=== PATIENT | male | born 1980 ===

== ENCOUNTER 2017-10-05 10:36 | Inpatient (IN) | payer OTHER ==
[2017-10-05] MEDS ORDERED: Sodium Chloride 0.9% 1,000 ML IV ONE (11:02)
[2017-10-05] MEDS ORDERED: Sodium Chloride 0.9% 1,000 ML ONE (11:13)
[2017-10-05 11:14] LABS: BASO # 0.1 K/uL (0.0-0.2); BASO % 0.7 % (0.0-2.0); LYMPH # 0.7 K/uL (1.0-4.3); LYMPH % 8.4 % (20.0-40.0); MEAN CELL VOLUME 67.9 fL (80.0-94.0); MEAN CORPUSCULAR HEMOGLOBIN 19.6 pg (27.0-31.0); MEAN CORPUSCULAR HGB CONC 28.9 g/dL (33.0-37.0); MONO # 1.1 K/uL (0.0-0.8); MONO % 13.3 % (0.0-10.0); NEUT # 6.4 K/uL (1.8-7.0); NEUT % 77.6 % (50.0-75.0); PLATELET COUNT 48 K/uL (130-400); RBC 1.69 Mil/uL (4.40-5.90); RED CELL DISTRIBUTION WIDTH 18.2 % (11.5-14.5); WHITE BLOOD COUNT 8.2 K/uL (4.8-10.8)
[2017-10-05 11:18] LABS: HEMOGLOBIN 3.3 g/dL (12.0-18.0)
[2017-10-05 11:22] LABS: INR 1.6; PROTHROMBIN TIME 17.5 SECONDS (9.7-12.2)
--- NOTE | 2017-10-05 11:25 | RAD ---
Date of service: 10/05/2017 PROCEDURE: CHEST RADIOGRAPH, 1 VIEW HISTORY: SOB COMPARISON: None available. FINDINGS: LUNGS: The lungs are well inflated and clear. PLEURA: No pneumothorax or pleural fluid seen. CARDIOVASCULAR: Normal. OSSEOUS STRUCTURES: No significant abnormalities. VISUALIZED UPPER ABDOMEN: Normal. OTHER FINDINGS: None. IMPRESSION: No active pulmonary disease.
[2017-10-05 11:28] LABS: ALBUMIN 3.1 g/dL (3.5-5.0); ALT/SGPT 48 U/L (21-72); AST/SGOT 111 U/L (17-59); BLOOD UREA NITROGEN 25 mg/dL (9-20); CALCIUM 8.4 mg/dl (8.6-10.4); GFR AFRICAN-AMERICAN > 60; GFR NON-AFRICAN AMERICAN > 60
[2017-10-05] MEDS ORDERED: Magnesium Sulfate 1 gm in D5W 1 GM/100 ML BAG IVPB ONE ×2 (11:38→11:54)
[2017-10-05] MEDS ORDERED: Potassium Chloride 20 mEq ER Tab PO STA (11:38)
[2017-10-05 11:39] LABS: B-TYPE NATRIURETIC PEPTIDE 111 pg/mL (0-450)
--- NOTE | 2017-10-05 11:43 | C.PDOC ---
History Of Present Illness 36 y/o male presents to ED with c/o dizziness for 4 days wore last night and today is unable to walk secondary to dizziness. Patient reports vomiting when eating and denies recent travel, chest pain, sob or any other complaints at this time. Time Seen by Provider: 10/05/17 10:43 Chief Complaint (Nursing): GI Problem History Per: Patient History/Exam Limitations: no limitations Onset/Duration Of Symptoms: Days Current Symptoms Are (Timing): Still Present Past Medical History Reviewed: Historical Data, Nursing Documentation, Vital Signs Vital Signs: Last Vital Signs Temp 99.6 F 10/05/17 10:58 Pulse 124 H 10/05/17 10:58 Resp 25 H 10/05/17 10:58 BP 121/48 L 10/05/17 10:58 Pulse Ox 100 10/05/17 11:59 - Medical History PMH: No Chronic Diseases Surgical History: No Surg Hx Family History: States: No Known Family Hx - Social History Hx Alcohol Use: Yes Hx Substance Use: No - Immunization History Hx Tetanus Toxoid Vaccination: No Hx Influenza Vaccination: No Hx Pneumococcal Vaccination: No Review Of Systems Except As Marked, All Systems Reviewed And Found Negative. Gastrointestinal: Positive for: Vomiting Neurological: Positive for: Dizziness Physical Exam - Physical Exam Appears: No Acute Distress, Chronically Ill Skin: Warm, Dry, Jaundice, Ecchymosis (to lower legs bilaterally) Head: Atraumatic, Normacephalic Eye(s): bilateral: PERRL, EOMI, Scleral Icterus Oral Mucosa: Moist Neck: Supple Chest: Ecchymosis (anterior chest wall ) Cardiovascular: Rhythm Regular, Murmur (3/6 systolic injection) Respiratory: Normal Breath Sounds, No Rales, No Rhonchi, No Wheezing Gastrointestinal/Abdominal: Soft, No Tenderness, No Guarding, No Rebound Rectal: Heme Positive (black stool ), No Blood Streaked Stool, No Tenderness Extremity: Normal ROM, No Calf Tenderness, No Deformity, No Swelling Neurological/Psych: Oriented x3, Normal Speech, Normal Cognition, Normal Motor, Normal Sensation, Other (Tremulous) ED Course And Treatment - Laboratory Results Result Diagrams: 10/05/17 11:10 10/05/17 11:10 ECG: Interpreted By Me, Viewed By Me ECG Rhythm: Sinus Tachycardia Rate From EC (BPM) O2 Sat by Pulse Oximetry: 100 (RA) Pulse Ox Interpretation: Normal Critical Care Time - Critical Care Note Total Time (in mins): 60 Documented critical care: time excludes all time spent performing seperately billable procedures. Medical Decision Making Medical Decision Making: Assessment: Dizziness Progress: [id number] results 3.3, d/w Dr. Chan, admit under his service for Severe anemia and instructed for 2 units of blood cells to be transfused Disposition Discussed With Dr.: Bao Díaz Doctor Will See Patient In The: Hospital Counseled Patient/Family Regarding: Studies Performed, Diagnosis - Disposition Disposition: HOSPITALIZED Disposition Time: 11:42 Condition: GUARDED - Clinical Impression Clinical Impression: Anemia, Electrolyte abnormality - Scribe Statement The provider has reviewed the documentation as recorded by the Scribnorris Kate All medical record entries made by the Leanaibnorris were at my direction and personally dictated by me. I have reviewed the chart and agree that the record accurately reflects my personal performance of the history, physical exam, medical decision making, and the department course for this patient. I have also personally directed, reviewed, and agree with the discharge instructions and disposition.
[2017-10-05] MEDS ORDERED: Pantoprazole 80 MG in Sodium Chloride 0.9% 100 ML IVP SCH (11:45)
[2017-10-05] MEDS ORDERED: Potassium Chloride 20 mEq ER Tab PO ONE (11:54)
[2017-10-05 12:16] LABS: BANDS 5 % (0-2); LYMPHOCYTE 7 % (20-40); MONOCYTE 9 % (0-10); NEUTROPHIL 79 % (50-75); TOTAL CELLS COUNTED 100
[2017-10-05 12:17] LABS: ANISOCYTOSIS MODERATE; MICROCYTOSIS MODERATE; PLATELET ESTIMATE DECREASED (NORMAL)
[2017-10-05 12:18] LABS: HYPOCHROMIC MARKED
[2017-10-05] MEDS ORDERED: Phytonadione 10 mg/ml Inj (Adult) IV STA (12:31)
[2017-10-05] MEDS ORDERED: Iodixanol 320 MG/ML 100 ML BOTTLE IV ONE (12:32)
[2017-10-05] MEDS ORDERED: Folic Acid 1 MG, Thiamine 100 MG, Multivitamin (MVI) 10 ML in Dextrose 5% In Water 1,00... IV SCH (12:45)
--- NOTE | 2017-10-05 12:53 | CP.PCM.CON ---
<Rich Vásquez - Last Filed: 10/05/17 16:14> History of Present Illness - History of Present Illness History of Present Illness: Rich Fahad DO PGY-1, ICU consult note for Dr. Chan CC: lightheadedness, dizziness Medical record and chart reviewed prior to evaluation. This is a 36 year old [id number], male without significant PMHx who was BIBA with complaints of feeling weak and dizzy over the past month , worsening over the past 4 days. Pt is a poor historian, but states that he has vomiting and diarrhea for the past week; described as black tarry stools and vomiting containing dark blood. Pt reports his last episode of vomiting was this morning; dark brown. He reports that his last episode of diarrhea was last night; dark and tarry. Pt reports that his has noticed yellowing of his eyes 1 week ago. ICU was consulted due to Hgb in the ED noted to be 3.3. Pt was seen and examined at bedside. Pt does not appear in acute distress. Endorses only weakness, lightheadedness and palpitations. Pt denies fevers, chills, headache, chest pain, sob, abdominal pain, recent travel. PMH: none PSHx: none FamilyHx: none Meds: none Allx: NKDA Social history: Drinks two 12-packs over the weekend. Denies drinking during the weekdays. Denies illicit drug use or smoking. Pt was born in [facility] and emig[place] the [facility] 16 years ago. 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 Review of Systems - Review of Systems All systems: reviewed and no additional remarkable complaints except (see HPI) Past Patient History - Past Social History Smoking Status: Never Smoked - PSYCHIATRIC Hx Substance Use: No - SURGICAL HISTORY Hx Surgeries: No - ANESTHESIA Hx Anesthesia: No Meds Allergies/Adverse Reactions: Allergies Allergy/AdvReac Type Severity Reaction Status Date / Time No Known Allergies Allergy Verified 10/05/17 10:46 - Medications Medications: Current Medications Sodium Chloride (Sodium Chloride 0.9%) 1,000 mls @ 250 mls/hr IV .Q4H ONE Stop: 10/05/17 15:01 Last Admin: 10/05/17 11:15 Dose: 250 mls/hr Pantoprazole Sodium 80 mg/ (Sodium Chloride) 100 mls @ 10 mls/hr IVP .Q10H [place]ICHOLE PRN Reason: 8 MG/HR Last Admin: 10/05/17 12:20 Dose: 10 mls/hr Magnesium Sulfate/Dextrose (Magnesium Sulfate 1 Gm/100 Ml D5w) 1 gm in 100 mls @ 300 mls/hr IVPB Q30M [facility] Stop: 10/05/17 13:34 Folic Acid 1 mg/ Thiamine HCl 100 mg/ Multivitamins/Vitamin C 10 ml/ Dextrose 1 ,011.2 mls @ 75 mls/hr IV .[id number] [facility] Lorazepam (Ativan) 1 mg IVP Q6H PRN PRN Reason: Anxiety Pantoprazole Sodium (Protonix Inj) 40 mg IVP Q12H [facility] Physical Exam - Constitutional Appears: No Acute Distress - Head Exam Head Exam: ATRAUMATIC, NORMAL INSPECTION - Eye Exam Eye Exam: PERRL, Scleral icterus - ENT Exam ENT Exam: Mucous Membranes Moist - Neck Exam Neck exam: Positive for: Normal Inspection - Respiratory Exam Respiratory Exam: Clear to Auscultation Bilateral, NORMAL BREATHING PATTERN. absent: Wheezes - Cardiovascular Exam Cardiovascular Exam: Tachycardia, Systolic Murmur Additional comments: blowing systolic murmur, most prominent at pulmonic valve - GI/Abdominal Exam GI & Abdominal Exam: Normal Bowel Sounds, Soft. absent: Tenderness - Extremities Exam Extremities exam: Positive for: pedal edema ((+) 1+ pitting edema bilateral lower extremities to just below the knee). Negative for: tenderness Additional comments: (+) both hands are tremulous - Neurological Exam Neurological exam: Oriented x3 - Psychiatric Exam Psychiatric exam: Normal Affect - Skin Skin Exam: Dry, Warm Additional comments: (+) jaundice (+) multiple areas of scattered nontender ecchymosis, all approximately 4cm x 2cm in size: left and right mid chest, left abdomen, left medial thigh Results - Vital Signs Recent Vital Signs: Last Vital Signs Temp 99.6 F 10/05/17 10:58 Pulse 109 H 10/05/17 12:02 Resp 18 10/05/17 12:02 BP 123/55 L 10/05/17 12:02 Pulse Ox 100 10/05/17 12:02 - Labs Result Diagrams: 10/05/17 11:10 10/05/17 11:10 Labs: Laboratory Results - last 24 hr 10/05/17 10/05/17 10/05/17 10:49 11:10 11:10 WBC 8.2 RBC 1.69 L Hgb 3.3 L* Hct 11.5 L MCV 67.9 L MCH 19.6 L MCHC 28.9 L RDW 18.2 H Plt Count 48 L MPV 9.0 Neut % (Auto) 77.6 H Lymph % (Auto) 8.4 L Letcher % (Auto) 13.3 H Eos % (Auto) 0.0 Baso % (Auto) 0.7 Neut # (Auto) 6.4 Lymph # (Auto) 0.7 L Letcher # (Auto) 1.1 H Eos # (Auto) 0.0 Baso # (Auto) 0.1 Neutrophils % (Manual) 79 H Band Neutrophils % 5 H Lymphocytes % (Manual) 7 L Monocytes % (Manual) 9 Platelet Estimate Decreased L Hypochromasia (manual) Marked Basophilic Stippling Slight Anisocytosis (manual) Moderate Microcytosis (manual) Moderate PT 17.5 H INR 1.6 APTT 32 Sodium Potassium Chloride Carbon Dioxide Anion Gap BUN Creatinine Est GFR ( Amer) Est GFR (Non-Af Amer) POC Glucose (mg/dL) 133 H Random Glucose Calcium Phosphorus Magnesium Total Bilirubin AST ALT Alkaline Phosphatase Ammonia Troponin I NT-Pro-B Natriuret Pep Total Protein Albumin Globulin Albumin/Globulin Ratio TSH 3rd Generation Alcohol, Quantitative Blood Type Antibody Screen 10/05/17 10/05/17 10/05/17 11:10 11:10 11:41 WBC RBC Hgb Hct MCV MCH MCHC RDW Plt Count MPV Neut % (Auto) Lymph % (Auto) Letcher % (Auto) Eos % (Auto) Baso % (Auto) Neut # (Auto) Lymph # (Auto) Letcher # (Auto) Eos # (Auto) Baso # (Auto) Neutrophils % (Manual) Band Neutrophils % Lymphocytes % (Manual) Monocytes % (Manual) Platelet Estimate Hypochromasia (manual) Basophilic Stippling Anisocytosis (manual) Microcytosis (manual) PT INR APTT Sodium 139 Potassium 3.3 L Chloride 103 Carbon Dioxide 16 L Anion Gap 24 H BUN 25 H Creatinine 0.8 Est GFR ( Amer) > 60 Est GFR (Non-Af Amer) > 60 POC Glucose (mg/dL) Random Glucose 120 H Calcium 8.4 L Phosphorus 3.7 Magnesium 1.5 L Total Bilirubin 4.0 H AST 111 H ALT 48 Alkaline Phosphatase 101 Ammonia 55 H Troponin I 0.0340 NT-Pro-B Natriuret Pep 111 Total Protein 6.3 Albumin 3.1 L Globulin 3.2 Albumin/Globulin Ratio 1.0 TSH 3rd Generation 2.02 Alcohol, Quantitative < 10 Blood Type O POSITIVE Antibody Screen Negative Assessment & Plan - Assessment and Plan (Free Text) Assessment: This is a 36 year old male without significant PMhx who presented to the ED via ambulance with complaints of weakness and dizziness for the past month, worsening over the past 5 days. He endorses a history of dark tarry stools and vomiting containing dark blood. In the ED, pt was noted to be severely anemic ( hgb 3.3) with thrombocytopenia (48). ICU was consulted due to severe anemia with thrombocytopenia. Neuro: - monitor for mental status changes - Pt is AAOx3 at baseline - head ct is unremarkable - serum alcohol<10 - ammonia elevated at 55 - lactulose PO - ativan prn agitation Cardio: - tachycardia without hypotension - maintain MAP>65mmHg - EKG shows ST at 118 - troponin negative x1 - echocardiogram Pulm: - pt is satting well on RA - maintain spo2>95% - NC prn - CXR shows no active pulmonary disease GI: - NPO for possible endoscopy tomorrow - abdominal/pelvic CT with IV contrast shows hepatic cirrhosis. Retroperitoneal varices in the left upper abdomen. No definite esophageal varices. No ascites. Diffuse nonspecific thickening of the gallbladder wall, possibly related to hypoalbuminemia associated with cirrhosis. Patent portal vein. - GI consulted, recs appreciated - octeotride 50 mcg bolus followed by octeotride 50 mcg/hr gtt as per GI - protonix gtt for pud ppx - zofran prn nausea - tbili elevated at 4.0 - transaminitis consistent with alcoholic hepatitis Heme: - microcytic anemia with thrombocytopenia; Hgb 3.3, PLT 48 - will transfuse 4 units of pRBCs through pressure bag - vitamin k - f/u haptoglobin, peripheral smear, reticulocyte count, tibc, iron - heparin for vte ppx contraindicated due to risk of bleeding - f/u cbc, PT/PTT/INR Renal: - BUN/cr is wnl - hypokalemia and hypomagnesemia; repleted - banana bag Endo: - maintain euglycemia - accucheck ACHS PPX: protonix gtt for pud; scds for vte ppx Dispo: admit to ICU, possible EGD tomorrow Case was reviewed and discussed with attending physician, Dr. Chan <Jalil Chan - Last Filed: 10/05/17 16:43> Meds - Medications Medications: Current Medications Pantoprazole Sodium 80 mg/ (Sodium Chloride) 100 mls @ 10 mls/hr IV .Q10H [place]LE PRN Reason: 8 MG/HR Octreotide Acetate 1,250 mcg/ (Sodium Chloride) 252.5 mls @ 10.1 mls/hr IV .Q24H NICHOLE; 50 MCG/HR PRN Reason: Protocol Last Admin: 10/05/17 14:53 Dose: 10.1 mls/hr Folic Acid 1 mg/ Thiamine HCl 100 mg/ Multivitamins/Vitamin C 10 ml/ Dextrose 1 ,011.2 mls @ 75 mls/hr IV Q24H [facility] Last Admin: 10/05/17 14:59 Dose: 75 mls/hr Lorazepam (Ativan) 1 mg IVP Q6H PRN PRN Reason: Anxiety Pneumococcal Polyvalent Vaccine (Pneumovax 23 Vaccine) 0.5 ml IM .ONCE ONE Stop: 10/08/17 10:01 Results - Vital Signs Recent Vital Signs: Last Vital Signs Temp 98.9 F 10/05/17 15:07 Pulse 100 H 10/05/17 15:04 Resp 20 10/05/17 15:04 BP 124/64 10/05/17 15:04 Pulse Ox 99 10/05/17 15:01 - Labs Result Diagrams: 10/05/17 11:10 10/05/17 11:10 Labs: Laboratory Results - last 24 hr 10/05/17 10/05/17 10/05/17 10:49 11:10 11:10 WBC 8.2 RBC 1.69 L Hgb 3.3 L* Hct 11.5 L MCV 67.9 L MCH 19.6 L MCHC 28.9 L RDW 18.2 H Plt Count 48 L MPV 9.0 Neut % (Auto) 77.6 H Lymph % (Auto) 8.4 L Letcher % (Auto) 13.3 H Eos % (Auto) 0.0 Baso % (Auto) 0.7 Neut # (Auto) 6.4 Lymph # (Auto) 0.7 L Letcher # (Auto) 1.1 H Eos # (Auto) 0.0 Baso # (Auto) 0.1 Neutrophils % (Manual) 79 H Band Neutrophils % 5 H Lymphocytes % (Manual) 7 L Monocytes % (Manual) 9 Platelet Estimate Decreased L Hypochromasia (manual) Marked Basophilic Stippling Slight Anisocytosis (manual) Moderate Microcytosis (manual) Moderate Smear Path Review Retic Count Cancelled Haptoglobin PT 17.5 H INR 1.6 APTT 32 Sodium Potassium Chloride Carbon Dioxide Anion Gap BUN Creatinine Est GFR ( Amer) Est GFR (Non-Af Amer) POC Glucose (mg/dL) 133 H Random Glucose Calcium Phosphorus Magnesium Iron TIBC % Saturation Total Bilirubin AST ALT Alkaline Phosphatase Ammonia Troponin I NT-Pro-B Natriuret Pep Total Protein Albumin Globulin Albumin/Globulin Ratio TSH 3rd Generation Alcohol, Quantitative Blood Type Antibody Screen 10/05/17 10/05/17 10/05/17 11:10 11:10 11:41 WBC RBC Hgb Hct MCV MCH MCHC RDW Plt Count MPV Neut % (Auto) Lymph % (Auto) Letcher % (Auto) Eos % (Auto) Baso % (Auto) Neut # (Auto) Lymph # (Auto) Letcher # (Auto) Eos # (Auto) Baso # (Auto) Neutrophils % (Manual) Band Neutrophils % Lymphocytes % (Manual) Monocytes % (Manual) Platelet Estimate Hypochromasia (manual) Basophilic Stippling Anisocytosis (manual) Microcytosis (manual) Smear Path Review Retic Count Haptoglobin PT INR APTT Sodium 139 Potassium 3.3 L Chloride 103 Carbon Dioxide 16 L Anion Gap 24 H BUN 25 H Creatinine 0.8 Est GFR ( Amer) > 60 Est GFR (Non-Af Amer) > 60 POC Glucose (mg/dL) Random Glucose 120 H Calcium 8.4 L Phosphorus 3.7 Magnesium 1.5 L Iron TIBC % Saturation Total Bilirubin 4.0 H AST 111 H ALT 48 Alkaline Phosphatase 101 Ammonia 55 H Troponin I 0.0340 NT-Pro-B Natriuret Pep 111 Total Protein 6.3 Albumin 3.1 L Globulin 3.2 Albumin/Globulin Ratio 1.0 TSH 3rd Generation 2.02 Alcohol, Quantitative < 10 Blood Type O POSITIVE Antibody Screen Negative 10/05/17 10/05/17 10/05/17 13:53 13:53 14:48 WBC RBC Hgb Hct MCV MCH MCHC RDW Plt Count MPV Neut % (Auto) Lymph % (Auto) Letcher % (Auto) Eos % (Auto) Baso % (Auto) Neut # (Auto) Lymph # (Auto) Letcher # (Auto) Eos # (Auto) Baso # (Auto) Neutrophils % (Manual) Band Neutrophils % Lymphocytes % (Manual) Monocytes % (Manual) Platelet Estimate Hypochromasia (manual) Basophilic Stippling Anisocytosis (manual) Microcytosis (manual) Smear Path Review Retic Count 5.6 H Haptoglobin 50.1 PT INR APTT Sodium Potassium Chloride Carbon Dioxide Anion Gap BUN Creatinine Est GFR ( Amer) Est GFR (Non-Af Amer) POC Glucose (mg/dL) Random Glucose Calcium Phosphorus Magnesium Iron 11 L TIBC 373 % Saturation 3 L Total Bilirubin AST ALT Alkaline Phosphatase Ammonia Troponin I NT-Pro-B Natriuret Pep Total Protein Albumin Globulin Albumin/Globulin Ratio TSH 3rd Generation Alcohol, Quantitative Blood Type Antibody Screen 10/05/17 14:48 WBC RBC Hgb Hct MCV MCH MCHC RDW Plt Count MPV Neut % (Auto) Lymph % (Auto) Letcher % (Auto) Eos % (Auto) Baso % (Auto) Neut # (Auto) Lymph # (Auto) Letcher # (Auto) Eos # (Auto) Baso # (Auto) Neutrophils % (Manual) Band Neutrophils % Lymphocytes % (Manual) Monocytes % (Manual) Platelet Estimate Hypochromasia (manual) Basophilic Stippling Anisocytosis (manual) Microcytosis (manual) Smear Path Review Retic Count Haptoglobin PT INR APTT Sodium Potassium Chloride Carbon Dioxide Anion Gap BUN Creatinine Est GFR ( Amer) Est GFR (Non-Af Amer) POC Glucose (mg/dL) Random Glucose Calcium Phosphorus Magnesium Iron TIBC % Saturation 3 L Total Bilirubin AST ALT Alkaline Phosphatase Ammonia Troponin I NT-Pro-B Natriuret Pep Total Protein Albumin Globulin Albumin/Globulin Ratio TSH 3rd Generation Alcohol, Quantitative Blood Type Antibody Screen Attending/Attestation - Attestation I have personally seen and examined this patient.: Yes I have fully participated in the care of the patient.: Yes I have reviewed all pertinent clinical information: Yes Notes (Text): 10/05/17 16:41 patient seen and examined 36-year-old male with history of alcohol abuse admitted with weakness and lethargy ICU consult for significant anemia and jaundice Transfuse packed RBCs Octreotide and Protonix drip GI consult Lactulose Ativan when necessary Magnesium and potassium Thiamine and folic acid
--- NOTE | 2017-10-05 12:59 | CT ---
Date of service: 10/05/2017 PROCEDURE: CT HEAD WITHOUT CONTRAST. HISTORY: dizziness COMPARISON: None available. TECHNIQUE: Axial computed tomography images were obtained through the head/brain without intravenous contrast. Radiation dose: Total exam DLP = 803.50 mGy-cm. This CT exam was performed using one or more of the following dose reduction techniques: Automated exposure control, adjustment of the mA and/or kV according to patient size, and/or use of iterative reconstruction technique. FINDINGS: HEMORRHAGE: No intracranial hemorrhage. BRAIN: Normal moon-white matter differentiation and density are appreciated throughout the cerebrum and cerebellum with the brainstem appearing unremarkable as well. There is no mass effect. There is no suspicious extra-axial fluid collection and the midline brain anatomy appears diffusely unremarkable. VENTRICLES: Unremarkable. No hydrocephalus. CALVARIUM: Unremarkable. PARANASAL SINUSES: Unremarkable as visualized. No significant inflammatory changes. MASTOID AIR CELLS: Unremarkable as visualized. No inflammatory changes. OTHER FINDINGS: None. IMPRESSION: Unremarkable noncontrast head CT.
--- NOTE | 2017-10-05 13:02 | CP.PCM.HP ---
<Tariq Greene - Last Filed: 10/05/17 14:57> History of Present Illness - History of Present Illness History of Present Illness: Medicine note for hospitalist service cc: I feel weak Pt is a 36yo male with a PMH of HTN presents to the ED with 5 day history of dizziness and weakness. Pt states this began 5 days ago when he began to get blurry vision. Pt reported first symptoms were noticed when waking up on tuesday feeling dizzy upon standing. Pt reports the orthostatic change worsening since tuesday. Pt reports not being able to walk to the store without getting losing his breath and getting light-headed. He began to feel dizzy and weak today at rest. Pt experienced 2 episodes of non-bloody, brown colored vomiting this morning. Pt reports blood-tinged stools this week. 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 Allergies: denies Present on Admission - Present on Admission Any Indicators Present on Admission: No Review of Systems - Review of Systems Systems not reviewed;Unavailable: Unstable Vital Signs - Constitutional Constitutional: As Per HPI - EENT Eyes: As Per HPI Ears: As Per HPI Nose/Mouth/Throat: As Per HPI - Cardiovascular Cardiovascular: As Per HPI - Respiratory Respiratory: As Per HPI - Gastrointestinal Gastrointestinal: As Per HPI - Genitourinary Genitourinary: As Per HPI - Reproductive: Male Reproductive:Male: As Per HPI - Musculoskeletal Musculoskeletal: As Per HPI - Integumentary Integumentary: As Per HPI - Neurological Neurological: As Per HPI - Psychiatric Psychiatric: As Per HPI - Endocrine Endocrine: As Per HPI - Hematologic/Lymphatic Hematologic: As Per HPI Past Patient History - Past Social History Smoking Status: Never Smoked Alcohol: Other (10+ beers on weekends) Drugs: Denies Home Situation {Lives}: With Family - CARDIAC Hx Hypertension: Yes - PSYCHIATRIC Hx Substance Use: No - SURGICAL HISTORY Hx Surgeries: No - ANESTHESIA Hx Anesthesia: No Meds Allergies/Adverse Reactions: Allergies Allergy/AdvReac Type Severity Reaction Status Date / Time No Known Allergies Allergy Verified 10/05/17 10:46 Physical Exam - Constitutional Appears: In Acute Distress - Head Exam Head Exam: ATRAUMATIC, NORMAL INSPECTION - Eye Exam Eye Exam: Scleral icterus Additional comments: pale conjunctiva - ENT Exam ENT Exam: Mucous Membranes Moist - Neck Exam Neck exam: Positive for: Normal Inspection - Respiratory Exam Respiratory Exam: Clear to Auscultation Bilateral, NORMAL BREATHING PATTERN. absent: Wheezes - Cardiovascular Exam Cardiovascular Exam: Tachycardia, +S1, +S2. absent: Diastolic murmur, Systolic Murmur - GI/Abdominal Exam GI & Abdominal Exam: Soft. absent: Guarding, Rebound, Tenderness - Rectal Exam Rectal Exam: Black Stool Additional comments: no blood streaks - Extremities Exam Extremities exam: Positive for: pedal pulses present. Negative for: joint swelling, pedal edema, tenderness - Back Exam Back exam: NORMAL INSPECTION - Neurological Exam Neurological exam: Alert, CN II-XII Intact, Oriented x3 - Psychiatric Exam Psychiatric exam: Anxious - Skin Skin Exam: Pallor Additional comments: Jaundice, pale palms Results - Vital Signs Recent Vital Signs: Last Vital Signs Temp 99.6 F 10/05/17 10:58 Pulse 109 H 10/05/17 12:02 Resp 18 10/05/17 12:02 BP 123/55 L 10/05/17 12:02 Pulse Ox 100 10/05/17 12:02 - Labs Result Diagrams: 10/05/17 11:10 10/05/17 11:10 Labs: Laboratory Results - last 24 hr 10/05/17 10/05/17 10/05/17 10:49 11:10 11:10 WBC 8.2 RBC 1.69 L Hgb 3.3 L* Hct 11.5 L MCV 67.9 L MCH 19.6 L MCHC 28.9 L RDW 18.2 H Plt Count 48 L MPV 9.0 Neut % (Auto) 77.6 H Lymph % (Auto) 8.4 L [place] % (Auto) 13.3 H Eos % (Auto) 0.0 Baso % (Auto) 0.7 Neut # (Auto) 6.4 Lymph # (Auto) 0.7 L [place] # (Auto) 1.1 H Eos # (Auto) 0.0 Baso # (Auto) 0.1 Neutrophils % (Manual) 79 H Band Neutrophils % 5 H Lymphocytes % (Manual) 7 L Monocytes % (Manual) 9 Platelet Estimate Decreased L Hypochromasia (manual) Marked Basophilic Stippling Slight Anisocytosis (manual) Moderate Microcytosis (manual) Moderate PT 17.5 H INR 1.6 APTT 32 Sodium Potassium Chloride Carbon Dioxide Anion Gap BUN Creatinine Est GFR ( Amer) Est GFR (Non-Af Amer) POC Glucose (mg/dL) 133 H Random Glucose Calcium Phosphorus Magnesium Total Bilirubin AST ALT Alkaline Phosphatase Ammonia Troponin I NT-Pro-B Natriuret Pep Total Protein Albumin Globulin Albumin/Globulin Ratio TSH 3rd Generation Alcohol, Quantitative Blood Type Antibody Screen 10/05/17 10/05/17 10/05/17 11:10 11:10 11:41 WBC RBC Hgb Hct MCV MCH MCHC RDW Plt Count MPV Neut % (Auto) Lymph % (Auto) [place] % (Auto) Eos % (Auto) Baso % (Auto) Neut # (Auto) Lymph # (Auto) [place] # (Auto) Eos # (Auto) Baso # (Auto) Neutrophils % (Manual) Band Neutrophils % Lymphocytes % (Manual) Monocytes % (Manual) Platelet Estimate Hypochromasia (manual) Basophilic Stippling Anisocytosis (manual) Microcytosis (manual) PT INR APTT Sodium 139 Potassium 3.3 L Chloride 103 Carbon Dioxide 16 L Anion Gap 24 H BUN 25 H Creatinine 0.8 Est GFR ( Amer) > 60 Est GFR (Non-Af Amer) > 60 POC Glucose (mg/dL) Random Glucose 120 H Calcium 8.4 L Phosphorus 3.7 Magnesium 1.5 L Total Bilirubin 4.0 H AST 111 H ALT 48 Alkaline Phosphatase 101 Ammonia 55 H Troponin I 0.0340 NT-Pro-B Natriuret Pep 111 Total Protein 6.3 Albumin 3.1 L Globulin 3.2 Albumin/Globulin Ratio 1.0 TSH 3rd Generation 2.02 Alcohol, Quantitative < 10 Blood Type O POSITIVE Antibody Screen Negative Assessment & Plan - Assessment and Plan (Free Text) Assessment: 36yo male admitted to the ICU for severe anemia likely secondary to GI bleed. Plan: Anemia secondary to GI Bleed -Admit to ICU -Protonix drip 8mg/hr -Type cross 2 units PRBCs over 3 hrs each -Trasnfusing first unit of PRBCs starting at 2pm -Tylenol 650mg and Benadrul 25mg PO given with first transfusion, next dose at 17:30 prior to 2nd transfusion -CBC with repeat at 12am -GI consulted: Cale Alcohol abuse: -Monitor for withdrawl -Ativan 2mg IV q4 PRN for withdrawl symptoms -Banana bag 1 daily, switch to PO supplementation when oral meds are recommended Liver Cirhosis: -Likely secondary to Alcohol abuse -GI consulted: daron barbour f/u -f/u HIV 1,2 panel -f/u Hepatits panel Hypokalemia/Hypomagnesemia: -Mg sulfate 2gs -KCl IV 20 meq -f/u am labs Metabolic Acidosis: -Likely secondary to GI bleed -IVF NS 100ml/hr -2 units of PRBCs 2pm, 6pm Low Measured Calcium: -corrected for albumin 9.36 -monitor Elevated LFTs: -secondary to hepatic cirhosis, Likely from Etoh abuse -CT abd pelv 10/05/17: Hepatic cirhosis. retroperitoneal varices in left upper abdomen. no esophageal varices, no ascites, gallbladder wall thickening, no portal HTN -f/u hep and HIV panels Ammonia Elevated: -Likely secondary to hepatic cirrhosis, likely from ETOh abuse -20 gm Lactulos PO -Head and Neck CT 10/05: neg -monitor Low Albumin -Likely secondary to cirhosis -monitor -supplement if needed Tachycardia: - likely secondary to anemia -Transfuse PRBS 2 units, 2pm, 6pm -IVF NS 100ml/hr PPX -no anticoag indicated: GI bleed -Protonoix 8mg q4 -NPO -Bilateral SCDs <Bao Díaz - Last Filed: 10/06/17 19:54> Results - Vital Signs Recent Vital Signs: Last Vital Signs Temp 98.5 F 10/06/17 16:00 Pulse 79 10/06/17 19:00 Resp 20 10/06/17 19:00 BP 127/69 10/06/17 19:00 Pulse Ox 97 10/06/17 19:00 - Labs Result Diagrams: 10/06/17 12:00 10/06/17 06:21 Labs: Laboratory Results - last 24 hr 10/05/17 10/05/17 10/05/17 11:41 21:24 21:24 WBC RBC Hgb Hct MCV MCH MCHC RDW Plt Count MPV Neut % (Auto) Lymph % (Auto) [place] % (Auto) Eos % (Auto) Baso % (Auto) Neut # (Auto) Lymph # (Auto) [place] # (Auto) Eos # (Auto) Baso # (Auto) Haptoglobin PT INR APTT Sodium Potassium Chloride Carbon Dioxide Anion Gap BUN Creatinine Est GFR ( Amer) Est GFR (Non-Af Amer) Random Glucose Calcium Phosphorus Magnesium Total Bilirubin AST ALT Alkaline Phosphatase Ammonia Total Protein Albumin Globulin Albumin/Globulin Ratio Thyroxine (T4) TSH 3rd Generation Urine Color Yellow Urine Clarity Clear Urine pH 6.0 Ur Specific [place] 1.038 H Urine Protein Negative Urine Glucose (UA) Normal Urine Ketones Negative Urine Blood Negative Urine Nitrate Negative Urine Bilirubin Negative Urine Urobilinogen 4.0 Ur Leukocyte Esterase Neg Urine WBC (Auto) 1 Urine RBC (Auto) 1 Ur Squamous Epith Cells < 1 Urine Opiates Screen Negative Urine Methadone Screen Negative Ur Barbiturates Screen Negative Ur Phencyclidine Scrn Negative Ur Amphetamines Screen Negative U Benzodiazepines Scrn Negative U Oth Cocaine Metabols Negative U Cannabinoids Screen Negative Blood Type O POSITIVE Antibody Screen Negative 10/05/17 10/06/17 10/06/17 21:24 06:21 06:21 WBC 6.6 5.7 RBC 2.72 L 3.17 L Hgb 6.6 L 8.0 L Hct 20.5 L 24.2 L MCV 75.2 L 76.3 L MCH 24.4 L 25.1 L MCHC 32.4 L 32.9 L RDW 21.7 H 20.8 H Plt Count 46 L 50 L MPV 8.5 8.9 Neut % (Auto) 77.9 H 76.2 H Lymph % (Auto) 10.4 L 12.3 L [place] % (Auto) 11.1 H 10.5 H Eos % (Auto) 0.0 0.0 Baso % (Auto) 0.6 1.0 Neut # (Auto) 5.1 4.3 Lymph # (Auto) 0.7 L 0.7 L [place] # (Auto) 0.7 0.6 Eos # (Auto) 0.0 0.0 Baso # (Auto) 0.0 0.1 Haptoglobin PT INR APTT Sodium 139 Potassium 3.4 L Chloride 106 Carbon Dioxide 24 Anion Gap 12 BUN 20 Creatinine 0.7 L Est GFR ( Amer) > 60 Est GFR (Non-Af Amer) > 60 Random Glucose 114 H Calcium 7.6 L Phosphorus 2.5 Magnesium 2.1 Total Bilirubin 4.7 H AST 128 H ALT 48 Alkaline Phosphatase 84 Ammonia Total Protein 5.9 L Albumin 2.8 L Globulin 3.2 Albumin/Globulin Ratio 0.9 L Thyroxine (T4) 7.03 TSH 3rd Generation 0.25 L Urine Color Urine Clarity Urine pH Ur Specific [place] Urine Protein Urine Glucose (UA) Urine Ketones Urine Blood Urine Nitrate Urine Bilirubin Urine Urobilinogen Ur Leukocyte Esterase Urine WBC (Auto) Urine RBC (Auto) Ur Squamous Epith Cells Urine Opiates Screen Urine Methadone Screen Ur Barbiturates Screen Ur Phencyclidine Scrn Ur Amphetamines Screen U Benzodiazepines Scrn U Oth Cocaine Metabols U Cannabinoids Screen Blood Type Antibody Screen 10/06/17 10/06/17 10/06/17 06:21 06:21 12:00 WBC RBC Hgb Hct MCV MCH MCHC RDW Plt Count MPV Neut % (Auto) Lymph % (Auto) [place] % (Auto) Eos % (Auto) Baso % (Auto) Neut # (Auto) Lymph # (Auto) [place] # (Auto) Eos # (Auto) Baso # (Auto) Haptoglobin 47.4 PT 15.1 H INR 1.4 APTT 30 Sodium Potassium Chloride Carbon Dioxide Anion Gap BUN Creatinine Est GFR ( Amer) Est GFR (Non-Af Amer) Random Glucose Calcium Phosphorus Magnesium Total Bilirubin AST ALT Alkaline Phosphatase Ammonia 74 H D Total Protein Albumin Globulin Albumin/Globulin Ratio Thyroxine (T4) TSH 3rd Generation Urine Color Urine Clarity Urine pH Ur Specific [place] Urine Protein Urine Glucose (UA) Urine Ketones Urine Blood Urine Nitrate Urine Bilirubin Urine Urobilinogen Ur Leukocyte Esterase Urine WBC (Auto) Urine RBC (Auto) Ur Squamous Epith Cells Urine Opiates Screen Urine Methadone Screen Ur Barbiturates Screen Ur Phencyclidine Scrn Ur Amphetamines Screen U Benzodiazepines Scrn U Oth Cocaine Metabols U Cannabinoids Screen Blood Type Antibody Screen 10/06/17 10/06/17 12:00 13:44 WBC 4.7 L RBC 3.12 L Hgb 7.9 L Hct 23.8 L MCV 76.2 L MCH 25.2 L MCHC 33.0 RDW 20.5 H Plt Count 54 L MPV 9.1 Neut % (Auto) 73.8 Lymph % (Auto) 12.3 L [place] % (Auto) 11.7 H Eos % (Auto) 0.7 Baso % (Auto) 1.5 Neut # (Auto) 3.5 Lymph # (Auto) 0.6 L [place] # (Auto) 0.5 Eos # (Auto) 0.0 Baso # (Auto) 0.1 Haptoglobin PT 15.6 H INR 1.4 APTT Sodium Potassium Chloride Carbon Dioxide Anion Gap BUN Creatinine Est GFR ( Amer) Est GFR (Non-Af Amer) Random Glucose Calcium Phosphorus Magnesium Total Bilirubin AST ALT Alkaline Phosphatase Ammonia Total Protein Albumin Globulin Albumin/Globulin Ratio Thyroxine (T4) TSH 3rd Generation Urine Color Urine Clarity Urine pH Ur Specific [place] Urine Protein Urine Glucose (UA) Urine Ketones Urine Blood Urine Nitrate Urine Bilirubin Urine Urobilinogen Ur Leukocyte Esterase Urine WBC (Auto) Urine RBC (Auto) Ur Squamous Epith Cells Urine Opiates Screen Urine Methadone Screen Ur Barbiturates Screen Ur Phencyclidine Scrn Ur Amphetamines Screen U Benzodiazepines Scrn U Oth Cocaine Metabols U Cannabinoids Screen Blood Type Antibody Screen Attending/Attestation - Attestation I have personally seen and examined this patient.: Yes I have fully participated in the care of the patient.: Yes I have reviewed all pertinent clinical information: Yes Notes (Text): 10/06/17 19:52 This is a late entry History, Physical, Assessment and Plan, and orders were gone over in detail with the resident once the patient reached the ICU Bao Díaz D.O.
--- NOTE | 2017-10-05 13:08 | CT ---
Date of service: 10/05/2017 PROCEDURE: CT Abdomen and Pelvis with contrast HISTORY: vomiting and abd. pain COMPARISON: None. TECHNIQUE: Contrast dose: 100 mL Visipaque 320 Radiation dose: Total exam DLP = 547.64 mGy-cm. This CT exam was performed using one or more of the following dose reduction techniques: Automated exposure control, adjustment of the mA and/or kV according to patient size, and/or use of iterative reconstruction technique. FINDINGS: LOWER THORAX: Unremarkable. LIVER: Nodular contour. Consistent with hepatic cirrhosis. No mass. No biliary ductal dilatation. GALLBLADDER AND BILE DUCTS: Diffuse mural thickening, nonspecific. No calcified gallstones. No pericholecystic fluid. PANCREAS: Unremarkable. No gross lesion or ductal dilatation. SPLEEN: Mild splenomegaly. The spleen measures 15 cm in greatest dimension. ADRENALS: Unremarkable. No mass. KIDNEYS AND URETERS: Unremarkable. No hydronephrosis. No solid mass. VASCULATURE: No evidence of abdominal aortic aneurysm. Varices are noted in the left upper abdomen, likely splenorenal. There is recanalization of the umbilical vein. No definite esophageal varices are identified. Portal vein and splenic vein are patent and enhance normally. BOWEL: Diffuse mural thickening of the colon consistent with nonspecific park colitis. No evidence of small-bowel obstruction. No other abnormal bowel loops are identified. Note is made of plaque-like calcification along the posterior wall of the distal esophagus, of uncertain significance. APPENDIX: Not identified. No secondary findings to suggest acute appendicitis. PERITONEUM: Unremarkable. No free fluid. No free air. LYMPH NODES: Unremarkable. No enlarged lymph nodes. BLADDER: Unremarkable. REPRODUCTIVE: Unremarkable prostate BONES: No acute fracture. OTHER FINDINGS: None. IMPRESSION: Hepatic cirrhosis. Retroperitoneal varices in the left upper abdomen. No definite esophageal varices. No ascites. Diffuse nonspecific thickening of the gallbladder wall, possibly related to hypoalbuminemia associated with cirrhosis. Patent portal vein.
[2017-10-05] MEDS: Magnesium Sulfate 1 gm in D5W 1 GM/100 ML BAG IVPB SCH ×2 (13:31→14:05)
[2017-10-05] MEDS ORDERED: Magnesium Sulfate 1 gm in D5W 1 GM/100 ML BAG IVPB SCH (14:00)
[2017-10-05] MEDS: Folic Acid 1 MG, Thiamine 100 MG, Multivitamin (MVI) 10 ML in Dextrose 5% In Water 1,00... IV SCH (14:59)
[2017-10-05 16:09] LABS: % IRON SATURATION 3 (20-55); IRON 11 ug/dL (49-181); TOTAL IRON BINDING CAPACITY 373 ug/dL (250-450)
[2017-10-05 16:56] LABS: BASO % 0.5 % (0.0-2.0); LYMPH # 0.9 K/uL (1.0-4.3); LYMPH % 13.3 % (20.0-40.0); MEAN CORPUSCULAR HEMOGLOBIN 23.6 pg (27.0-31.0); MEAN CORPUSCULAR HGB CONC 31.1 g/dL (33.0-37.0); MEAN PLATELET VOLUME 9.1 fL (7.2-11.7); MONO # 0.9 K/uL (0.0-0.8); MONO % 12.5 % (0.0-10.0); NEUT % 73.7 % (50.0-75.0); NRBC % 0.9 % (0.0-2.0); RBC 2.29 Mil/uL (4.40-5.90); RED CELL DISTRIBUTION WIDTH 23.3 % (11.5-14.5); WHITE BLOOD COUNT 6.8 K/uL (4.8-10.8)
[2017-10-05 17:04] LABS: HEMOGLOBIN 5.4 g/dL (12.0-18.0); MEAN CELL VOLUME 75.8 fL (80.0-94.0)
--- NOTE | 2017-10-05 18:51 | CP.PCM.CON ---
History of Present Illness - History of Present Illness History of Present Illness: ASked today to see pt for anemia Gi bleed h/o etoh us for many years Reports weakness x 5 days. Reports brown vomitin. Reports dark stools. Today now brown stools. Sl epig pain. Denies dysphagia wt loss Review of Systems - Constitutional Constitutional: Fatigue, Lethargy, Weakness. absent: Fever, Weight Loss - EENT Eyes: absent: Photophobia Nose/Mouth/Throat: absent: Throat Swelling - Cardiovascular Cardiovascular: absent: Chest Pain - Respiratory Respiratory: absent: Hemoptysis, Wheezing - Gastrointestinal Gastrointestinal: Abdominal Pain, Hematochezia, Loose Stools, Vomiting. absent : Dysphagia - Genitourinary Genitourinary: absent: Hematuria - Musculoskeletal Musculoskeletal: absent: Muscle Cramps - Integumentary Integumentary: absent: Rash - Neurological Neurological: absent: Convulsions Past Patient History - Past Social History Smoking Status: Never Smoked - CARDIAC Hx Hypertension: Yes - MUSCULOSKELETAL/RHEUMATOLOGICAL Hx Falls: No - PSYCHIATRIC Hx Substance Use: No - SURGICAL HISTORY Hx Surgeries: No - ANESTHESIA Hx Anesthesia: No Meds Allergies/Adverse Reactions: Allergies Allergy/AdvReac Type Severity Reaction Status Date / Time No Known Allergies Allergy Verified 10/05/17 10:46 - Medications Medications: Current Medications Pantoprazole Sodium 80 mg/ (Sodium Chloride) 100 mls @ 10 mls/hr IV .Q10H NICHOLE PRN Reason: 8 MG/HR Octreotide Acetate 1,250 mcg/ (Sodium Chloride) 252.5 mls @ 10.1 mls/hr IV .Q24H N[place]HOLE; 50 MCG/HR PRN Reason: Protocol Last Admin: 10/05/17 14:53 Dose: 10.1 mls/hr Folic Acid 1 mg/ Thiamine HCl 100 mg/ Multivitamins/Vitamin C 10 ml/ Dextrose 1 ,011.2 mls @ 75 mls/hr IV Q24H NICHOLE Last Admin: 10/05/17 14:59 Dose: 75 mls/hr Lorazepam (Ativan) 1 mg IVP Q6H PRN PRN Reason: Anxiety Pneumococcal Polyvalent Vaccine (Pneumovax 23 Vaccine) 0.5 ml IM .ONCE ONE Stop: 10/08/17 10:01 Physical Exam - Constitutional Appears: Non-toxic - Neck Exam Neck exam: Negative for: Tenderness - Respiratory Exam Respiratory Exam: Clear to Auscultation Bilateral - Cardiovascular Exam Cardiovascular Exam: Tachycardia - GI/Abdominal Exam GI & Abdominal Exam: Normal Bowel Sounds, Soft. absent: Distended, Guarding, Mass, Rebound, Tenderness - Neurological Exam Neurological exam: Alert, Oriented x3 - Skin Skin Exam: Intact Results - Vital Signs Recent Vital Signs: Last Vital Signs Temp 99 F 10/05/17 17:29 Pulse 104 H 10/05/17 18:00 Resp 32 H 10/05/17 18:00 BP 130/73 10/05/17 17:46 Pulse Ox 94 L 10/05/17 18:00 - Labs Result Diagrams: 10/05/17 16:31 10/05/17 11:10 Labs: Laboratory Results - last 24 hr 10/05/17 10/05/17 10/05/17 10:49 11:10 11:10 WBC 8.2 RBC 1.69 L Hgb 3.3 L* Hct 11.5 L MCV 67.9 L MCH 19.6 L MCHC 28.9 L RDW 18.2 H Plt Count 48 L MPV 9.0 Neut % (Auto) 77.6 H Lymph % (Auto) 8.4 L [place] % (Auto) 13.3 H Eos % (Auto) 0.0 Baso % (Auto) 0.7 Neut # (Auto) 6.4 Lymph # (Auto) 0.7 L [place] # (Auto) 1.1 H Eos # (Auto) 0.0 Baso # (Auto) 0.1 Neutrophils % (Manual) 79 H Band Neutrophils % 5 H Lymphocytes % (Manual) 7 L Monocytes % (Manual) 9 Differential Comment Platelet Estimate Decreased L Hypochromasia (manual) Marked Basophilic Stippling Slight Anisocytosis (manual) Moderate Microcytosis (manual) Moderate Smear Path Review Retic Count Cancelled Haptoglobin PT 17.5 H INR 1.6 APTT 32 Sodium Potassium Chloride Carbon Dioxide Anion Gap BUN Creatinine Est GFR ( Amer) Est GFR (Non-Af Amer) POC Glucose (mg/dL) 133 H Random Glucose Calcium Phosphorus Magnesium Iron TIBC % Saturation Ferritin Total Bilirubin AST ALT Alkaline Phosphatase Ammonia Troponin I NT-Pro-B Natriuret Pep Total Protein Albumin Globulin Albumin/Globulin Ratio Free T4 TSH 3rd Generation Alcohol, Quantitative Blood Type Antibody Screen 10/05/17 10/05/17 10/05/17 11:10 11:10 11:41 WBC RBC Hgb Hct MCV MCH MCHC RDW Plt Count MPV Neut % (Auto) Lymph % (Auto) [place] % (Auto) Eos % (Auto) Baso % (Auto) Neut # (Auto) Lymph # (Auto) [place] # (Auto) Eos # (Auto) Baso # (Auto) Neutrophils % (Manual) Band Neutrophils % Lymphocytes % (Manual) Monocytes % (Manual) Differential Comment Platelet Estimate Hypochromasia (manual) Basophilic Stippling Anisocytosis (manual) Microcytosis (manual) Smear Path Review Retic Count Haptoglobin PT INR APTT Sodium 139 Potassium 3.3 L Chloride 103 Carbon Dioxide 16 L Anion Gap 24 H BUN 25 H Creatinine 0.8 Est GFR ( Amer) > 60 Est GFR (Non-Af Amer) > 60 POC Glucose (mg/dL) Random Glucose 120 H Calcium 8.4 L Phosphorus 3.7 Magnesium 1.5 L Iron TIBC % Saturation Ferritin Total Bilirubin 4.0 H AST 111 H ALT 48 Alkaline Phosphatase 101 Ammonia 55 H Troponin I 0.0340 NT-Pro-B Natriuret Pep 111 Total Protein 6.3 Albumin 3.1 L Globulin 3.2 Albumin/Globulin Ratio 1.0 Free T4 TSH 3rd Generation 2.02 Alcohol, Quantitative < 10 Blood Type O POSITIVE Antibody Screen Negative 10/05/17 10/05/17 10/05/17 13:53 13:53 13:53 WBC RBC Hgb Hct MCV MCH MCHC RDW Plt Count MPV Neut % (Auto) Lymph % (Auto) [place] % (Auto) Eos % (Auto) Baso % (Auto) Neut # (Auto) Lymph # (Auto) [place] # (Auto) Eos # (Auto) Baso # (Auto) Neutrophils % (Manual) Band Neutrophils % Lymphocytes % (Manual) Monocytes % (Manual) Differential Comment Platelet Estimate Hypochromasia (manual) Basophilic Stippling Anisocytosis (manual) Microcytosis (manual) Smear Path Review Retic Count 5.6 H Haptoglobin 50.1 PT INR APTT Sodium Potassium Chloride Carbon Dioxide Anion Gap BUN Creatinine Est GFR ( Amer) Est GFR (Non-Af Amer) POC Glucose (mg/dL) Random Glucose Calcium Phosphorus Magnesium Iron TIBC % Saturation Ferritin 19.9 Total Bilirubin AST ALT Alkaline Phosphatase Ammonia Troponin I NT-Pro-B Natriuret Pep Total Protein Albumin Globulin Albumin/Globulin Ratio Free T4 TSH 3rd Generation Alcohol, Quantitative Blood Type Antibody Screen 10/05/17 10/05/17 10/05/17 13:53 14:48 14:48 WBC RBC Hgb Hct MCV MCH MCHC RDW Plt Count MPV Neut % (Auto) Lymph % (Auto) [place] % (Auto) Eos % (Auto) Baso % (Auto) Neut # (Auto) Lymph # (Auto) [place] # (Auto) Eos # (Auto) Baso # (Auto) Neutrophils % (Manual) Band Neutrophils % Lymphocytes % (Manual) Monocytes % (Manual) Differential Comment Platelet Estimate Hypochromasia (manual) Basophilic Stippling Anisocytosis (manual) Microcytosis (manual) Smear Path Review Retic Count Haptoglobin PT INR APTT Sodium Potassium Chloride Carbon Dioxide Anion Gap BUN Creatinine Est GFR ( Amer) Est GFR (Non-Af Amer) POC Glucose (mg/dL) Random Glucose Calcium Phosphorus Magnesium Iron 11 L TIBC 373 % Saturation 3 L 3 L Ferritin Total Bilirubin AST ALT Alkaline Phosphatase Ammonia Troponin I NT-Pro-B Natriuret Pep Total Protein Albumin Globulin Albumin/Globulin Ratio Free T4 1.52 TSH 3rd Generation Alcohol, Quantitative Blood Type Antibody Screen 10/05/17 16:31 WBC 6.8 RBC 2.29 L Hgb 5.4 L* D Hct 17.3 L MCV 75.8 L D MCH 23.6 L MCHC 31.1 L RDW 23.3 H Plt Count 40 L MPV 9.1 Neut % (Auto) 73.7 Lymph % (Auto) 13.3 L [place] % (Auto) 12.5 H Eos % (Auto) 0.0 Baso % (Auto) 0.5 Neut # (Auto) 5.0 Lymph # (Auto) 0.9 L [place] # (Auto) 0.9 H Eos # (Auto) 0.0 Baso # (Auto) 0.0 Neutrophils % (Manual) Band Neutrophils % Lymphocytes % (Manual) Monocytes % (Manual) Differential Comment Platelet Estimate Hypochromasia (manual) Basophilic Stippling Anisocytosis (manual) Microcytosis (manual) Smear Path Review Retic Count Haptoglobin PT INR APTT Sodium Potassium Chloride Carbon Dioxide Anion Gap BUN Creatinine Est GFR ( Amer) Est GFR (Non-Af Amer) POC Glucose (mg/dL) Random Glucose Calcium Phosphorus Magnesium Iron TIBC % Saturation Ferritin Total Bilirubin AST ALT Alkaline Phosphatase Ammonia Troponin I NT-Pro-B Natriuret Pep Total Protein Albumin Globulin Albumin/Globulin Ratio Free T4 TSH 3rd Generation Alcohol, Quantitative Blood Type Antibody Screen Assessment & Plan (1) GI bleed Assessment and Plan: Consider ulcer, MW tear, vs varices. No bleeding this pm. Hb is low. Will need to transfuse, PPI, octreotide, and then EGD. Status: Acute (2) Cirrhosis Assessment and Plan: Due to etoh. Seen on CT. Check hep profile Status: Acute (3) Alcohol abuse Assessment and Plan: watch for DT Status: Acute (4) Anemia Status: Acute (5) Electrolyte abnormality Assessment and Plan: Correct as per medical team. Discussed case with Nutritional Services Host Status: Acute
[2017-10-05] MEDS: Pantoprazole 80 MG in Sodium Chloride 0.9% 100 ML IV SCH ×2 (20:53→23:00)
[2017-10-05 21:28] LABS: BASO % 0.6 % (0.0-2.0); HEMOGLOBIN 6.6 g/dL (12.0-18.0); LYMPH # 0.7 K/uL (1.0-4.3); LYMPH % 10.4 % (20.0-40.0); MEAN CELL VOLUME 75.2 fL (80.0-94.0); MEAN CORPUSCULAR HEMOGLOBIN 24.4 pg (27.0-31.0); MEAN CORPUSCULAR HGB CONC 32.4 g/dL (33.0-37.0); MEAN PLATELET VOLUME 8.5 fL (7.2-11.7); MONO # 0.7 K/uL (0.0-0.8); MONO % 11.1 % (0.0-10.0); NEUT # 5.1 K/uL (1.8-7.0); NEUT % 77.9 % (50.0-75.0); NRBC % 0.7 % (0.0-2.0); RBC 2.72 Mil/uL (4.40-5.90); RED CELL DISTRIBUTION WIDTH 21.7 % (11.5-14.5); WHITE BLOOD COUNT 6.6 K/uL (4.8-10.8)
[2017-10-05 21:37] LABS: SQUAMOUS EPITHIAL < 1 /hpf (0-5); URINE BILIRUBIN NEGATIVE (NEGATIVE); URINE BLOOD NEGATIVE (NEGATIVE); URINE CLARITY Clear (Clear); URINE GLUCOSE (UA) NORMAL (Normal); URINE LEUKOCYTE ESTERASE NEG Leu/uL (Negative); URINE PROTEIN NEGATIVE (NEGATIVE)
[2017-10-05 21:41] LABS: URINE COLOR YELLOW (YELLOW)
[2017-10-05 22:17] LABS: BARBITURATES, UR NEGATIVE (NEGATIVE); BENZODIAZEPINES, UR NEGATIVE (NEGATIVE); OPIATES, UR NEGATIVE (NEGATIVE); PHENCYCLIDINE, UR NEGATIVE (NEGATIVE)
[2017-10-06 06:29] LABS: BASO # 0.1 K/uL (0.0-0.2); LYMPH # 0.7 K/uL (1.0-4.3); LYMPH % 12.3 % (20.0-40.0); MEAN CELL VOLUME 76.3 fL (80.0-94.0); MEAN CORPUSCULAR HEMOGLOBIN 25.1 pg (27.0-31.0); MEAN CORPUSCULAR HGB CONC 32.9 g/dL (33.0-37.0); MEAN PLATELET VOLUME 8.9 fL (7.2-11.7); MONO # 0.6 K/uL (0.0-0.8); MONO % 10.5 % (0.0-10.0); NEUT # 4.3 K/uL (1.8-7.0); NEUT % 76.2 % (50.0-75.0); NRBC % 0.5 % (0.0-2.0); RBC 3.17 Mil/uL (4.40-5.90); RED CELL DISTRIBUTION WIDTH 20.8 % (11.5-14.5); WHITE BLOOD COUNT 5.7 K/uL (4.8-10.8)
[2017-10-06 06:33] LABS: INR 1.4; PROTHROMBIN TIME 15.1 SECONDS (9.7-12.2)
[2017-10-06 06:57] LABS: ALB/GLOB RATIO 0.9 (1.0-2.1); ALBUMIN 2.8 g/dL (3.5-5.0); ALT/SGPT 48 U/L (21-72); AST/SGOT 128 U/L (17-59); BLOOD UREA NITROGEN 20 mg/dL (9-20); CALCIUM 7.6 mg/dl (8.6-10.4); GFR AFRICAN-AMERICAN > 60; GFR NON-AFRICAN AMERICAN > 60; T4 7.03 ug/dL (5.5-11.0)
[2017-10-06] MEDS ORDERED: Midazolam 2 MG/2 ML VIAL ONE (07:32)
[2017-10-06] MEDS ORDERED: Propofol 10 mg/ml Inj (20 ML) ONE (07:33)
--- NOTE | 2017-10-06 08:02 | CP.CCUPN ---
CCU Subjective - Physician Review Subjective (Free Text): Rich Vásquez DO PGY-1, progress note for Dr. Harper Pt seen and examined at bedside. Pt is urdu speaking only and translation was obtained via co-resident. He recently returned from endoscopy, where esophageal varices were banded. Pt has no complaints at this time. Pt denies fever, chills, headache, visual changes, dizziness, lightheadedness, weakness, numbness or tingling, chest pain, palpitations, shortness of breath, abdominal pain, n/v/d, hemetemasis, hematochezia, melena. A 12-point ROS was reviewed and is otherwise unremarkable. CCU Objective - Vital Signs / Intake & Output Vital Signs (Last 4 hours): Vital Signs Pulse Resp BP Pulse Ox 10/06/17 07:00 85 24 98 10/06/17 06:50 84 22 131/72 91 L 10/06/17 06:00 81 19 97 10/06/17 05:50 82 22 124/67 97 10/06/17 05:00 90 22 100 10/06/17 04:50 93 H 20 139/77 100 10/06/17 04:28 138/81 Intake and Output (Last 8hrs): Intake & Output 10/05/17 10/06/17 10/06/17 22:59 06:59 14:59 Intake Total 1335 835 95 Output Total 601 200 Balance 734 635 95 Weight 72.121 kg Intake: IV 0 Intake, IV Amount 635 460 95 L FA 475 300 75 Left Forearm 80 80 10 Right Wrist 80 80 10 Oral 50 Blood Product 650 325 Red Blood Cells Cpd As1 0 325 Lr Unit [id number] Red Blood Cells Cpd As1 325 Lr Unit [id number] Red Blood Cells Cpd As1 325 Lr Unit [id number] Other 50 Red Blood Cells Cpd As1 50 Lr Unit [id number] Output: Urine 600 200 Urine, Voided 600 200 Emesis 1 Other: # Bowel Movements 1 - Physical Exam Head: Positive for: Atraumatic, Normocephalic Pupils: Positive for: PERRL Extroacular Muscles: Positive for: EOMI Conjunctiva: Positive for: Normal Mouth: Positive for: Moist Mucous Membranes Neck: Positive for: Normal Range of Motion Respiratory/Chest: Positive for: Clear to Auscultation, Good Air Exchange. Negative for: Respiratory Distress, Accessory Muscle Use Cardiovascular: Positive for: Regular Rate and Rhythm, Normal S1, S2 Abdomen: Positive for: Normal Bowel Sounds. Negative for: Tenderness, Distention Upper Extremity: Positive for: Normal Inspection Lower Extremity: Positive for: Normal Inspection Neurological: Positive for: GCS=15 Skin: Positive for: Warm, Dry, Normal Color, Other ((+)scattered, healing, nontender ecchymoses) Psychiatric: Positive for: Alert, Oriented x 3 - Medications Active Medications: Active Medications Generic Name Dose Route Start Last Admin Trade Name Freq PRN Reason Stop Dose Admin Pantoprazole Sodium 80 mg/ 100 mls @ 10 mls/hr 10/05/17 22:20 10/05/17 23:00 Sodium Chloride IV Not Given .Q10H NICHOLE 8 MG/HR Octreotide Acetate 1,250 mcg/ 252.5 mls @ 10.1 mls/hr 10/05/17 14:30 14:53 Sodium Chloride IV 10.1 mls/hr .Q24H NICHOLE Administration Protocol 50 MCG/HR Folic Acid 1 mg/ Thiamine HCl 1,011.2 mls @ 75 mls/hr 10/05/17 14:45 14:59 100 mg/ Multivitamins/Vitamin IV 75 mls/hr C 10 ml/ Dextrose Q24H NICHOLE Administration Potassium Chloride 10 meq in 100 mls @ 100 mls/hr 10/06/17 07:40 Potassium Chloride 10 Meq/100 Ml IVPB 10/06/17 08:39 ONCE ONE Lorazepam 1 mg 10/05/17 12:31 10/05/17 23:39 Ativan IVP 1 mg Q6H PRN Administration Anxiety Pneumococcal Polyvalent Vaccine 0.5 ml 10/08/17 10:00 Pneumovax 23 Vaccine IM 10/08/17 10:01 .ONCE ONE - Patient Studies Lab Studies: Lab Studies 10/06/17 10/06/17 10/06/17 Range/Units 06:21 06:21 06:21 WBC (4.8-10.8) K/uL RBC (4.40-5.90) Mil/uL Hgb (12.0-18.0) g/dL Hct (35.0-51.0) % MCV (80.0-94.0) fL MCH (27.0-31.0) pg MCHC (33.0-37.0) g/dL RDW (11.5-14.5) % Plt Count (130-400) K/uL MPV (7.2-11.7) fL Neut % (Auto) (50.0-75.0) % Lymph % (Auto) (20.0-40.0) % Hood % (Auto) (0.0-10.0) % Eos % (Auto) (0.0-4.0) % Baso % (Auto) (0.0-2.0) % Neut # (Auto) (1.8-7.0) K/uL Lymph # (Auto) (1.0-4.3) K/uL Hood # (Auto) (0.0-0.8) K/uL Eos # (Auto) (0.0-0.7) K/uL Baso # (Auto) (0.0-0.2) K/uL Neutrophils % (Manual) (50-75) % Band Neutrophils % (0-2) % Lymphocytes % (Manual) (20-40) % Monocytes % (Manual) (0-10) % Differential Comment Platelet Estimate (NORMAL) Hypochromasia (manual) Basophilic Stippling Anisocytosis (manual) Microcytosis (manual) Smear Path Review Retic Count Haptoglobin 47.4 (30.0-200.0) mg/dL PT 15.1 H (9.7-12.2) SECONDS INR 1.4 APTT 30 (21-34) SECONDS Sodium 139 (132-148) mmol/L Potassium 3.4 L (3.6-5.2) mmol/L Chloride 106 (98-107) mmol/L Carbon Dioxide 24 (22-30) mmol/L Anion Gap 12 (10-20) BUN 20 (9-20) mg/dL Creatinine 0.7 L (0.8-1.5) mg/dL Est GFR ( Amer) > 60 Est GFR (Non-Af Amer) > 60 POC Glucose (mg/dL) (65-110) mg/dL Random Glucose 114 H (75-110) mg/dL Calcium 7.6 L (8.6-10.4) mg/dl Phosphorus 2.5 (2.5-4.5) mg/dL Magnesium 2.1 (1.6-2.3) mg/dL Iron (49-181) ug/dL TIBC (250-450) ug/dL % Saturation (20-55) Ferritin ng/mL Total Bilirubin 4.7 H (0.2-1.3) mg/dL AST 128 H (17-59) U/L ALT 48 (21-72) U/L Alkaline Phosphatase 84 (38-126) U/L Ammonia (9-33) umol/L Troponin I (0.00-0.120) ng/mL NT-Pro-B Natriuret Pep (0-450) pg/mL Total Protein 5.9 L (6.3-8.3) g/dL Albumin 2.8 L (3.5-5.0) g/dL Globulin 3.2 (2.2-3.9) gm/dL Albumin/Globulin Ratio 0.9 L (1.0-2.1) Free T4 (0.78-2.19) ng/dL Thyroxine (T4) 7.03 (5.5-11.0) ug/dL TSH 3rd Generation 0.25 L (0.46-4.68) mIU/L Urine Color (YELLOW) Urine Clarity (Clear) Urine pH (5.0-8.0) Ur Specific [place] (1.003-1.030) Urine Protein (NEGATIVE) mg/dL Urine Glucose (UA) (Normal) mg/dL Urine Ketones (NEGATIVE) mg/dL Urine Blood (NEGATIVE) Urine Nitrate (NEGATIVE) Urine Bilirubin (NEGATIVE) Urine Urobilinogen (0.2-1.0) mg/dL Ur Leukocyte Esterase (Negative) Wendy/uL Urine WBC (Auto) (0-5) /hpf Urine RBC (Auto) (0-3) /hpf Ur Squamous Epith Cells (0-5) /hpf Urine Opiates Screen (NEGATIVE) Urine Methadone Screen (NEGATIVE) Ur Barbiturates Screen (NEGATIVE) Ur Phencyclidine Scrn (NEGATIVE) Ur Amphetamines Screen (NEGATIVE) U Benzodiazepines Scrn (NEGATIVE) U Oth Cocaine Metabols (NEGATIVE) U Cannabinoids Screen (NEGATIVE) Alcohol, Quantitative (0-10) mg/dl Blood Type Antibody Screen 10/06/17 10/05/17 10/05/17 Range/Units 06:21 21:24 21:24 WBC 5.7 6.6 (4.8-10.8) K/uL RBC 3.17 L 2.72 L (4.40-5.90) Mil/uL Hgb 8.0 L 6.6 L (12.0-18.0) g/dL Hct 24.2 L 20.5 L (35.0-51.0) % MCV 76.3 L 75.2 L (80.0-94.0) fL MCH 25.1 L 24.4 L (27.0-31.0) pg MCHC 32.9 L 32.4 L (33.0-37.0) g/dL RDW 20.8 H 21.7 H (11.5-14.5) % Plt Count 50 L 46 L (130-400) K/uL MPV 8.9 8.5 (7.2-11.7) fL Neut % (Auto) 76.2 H 77.9 H (50.0-75.0) % Lymph % (Auto) 12.3 L 10.4 L (20.0-40.0) % Hood % (Auto) 10.5 H 11.1 H (0.0-10.0) % Eos % (Auto) 0.0 0.0 (0.0-4.0) % Baso % (Auto) 1.0 0.6 (0.0-2.0) % Neut # (Auto) 4.3 5.1 (1.8-7.0) K/uL Lymph # (Auto) 0.7 L 0.7 L (1.0-4.3) K/uL Hood # (Auto) 0.6 0.7 (0.0-0.8) K/uL Eos # (Auto) 0.0 0.0 (0.0-0.7) K/uL Baso # (Auto) 0.1 0.0 (0.0-0.2) K/uL Neutrophils % (Manual) (50-75) % Band Neutrophils % (0-2) % Lymphocytes % (Manual) (20-40) % Monocytes % (Manual) (0-10) % Differential Comment Platelet Estimate (NORMAL) Hypochromasia (manual) Basophilic Stippling Anisocytosis (manual) Microcytosis (manual) Smear Path Review Retic Count Haptoglobin (30.0-200.0) mg/dL PT (9.7-12.2) SECONDS INR APTT (21-34) SECONDS Sodium (132-148) mmol/L Potassium (3.6-5.2) mmol/L Chloride (98-107) mmol/L Carbon Dioxide (22-30) mmol/L Anion Gap (10-20) BUN (9-20) mg/dL Creatinine (0.8-1.5) mg/dL Est GFR ( Amer) Est GFR (Non-Af Amer) POC Glucose (mg/dL) (65-110) mg/dL Random Glucose (75-110) mg/dL Calcium (8.6-10.4) mg/dl Phosphorus (2.5-4.5) mg/dL Magnesium (1.6-2.3) mg/dL Iron (49-181) ug/dL TIBC (250-450) ug/dL % Saturation (20-55) Ferritin ng/mL Total Bilirubin (0.2-1.3) mg/dL AST (17-59) U/L ALT (21-72) U/L Alkaline Phosphatase (38-126) U/L Ammonia (9-33) umol/L Troponin I (0.00-0.120) ng/mL NT-Pro-B Natriuret Pep (0-450) pg/mL Total Protein (6.3-8.3) g/dL Albumin (3.5-5.0) g/dL Globulin (2.2-3.9) gm/dL Albumin/Globulin Ratio (1.0-2.1) Free T4 (0.78-2.19) ng/dL Thyroxine (T4) (5.5-11.0) ug/dL TSH 3rd Generation (0.46-4.68) mIU/L Urine Color (YELLOW) Urine Clarity (Clear) Urine pH (5.0-8.0) Ur Specific [place] (1.003-1.030) Urine Protein (NEGATIVE) mg/dL Urine Glucose (UA) (Normal) mg/dL Urine Ketones (NEGATIVE) mg/dL Urine Blood (NEGATIVE) Urine Nitrate (NEGATIVE) Urine Bilirubin (NEGATIVE) Urine Urobilinogen (0.2-1.0) mg/dL Ur Leukocyte Esterase (Negative) Wendy/uL Urine WBC (Auto) (0-5) /hpf Urine RBC (Auto) (0-3) /hpf Ur Squamous Epith Cells (0-5) /hpf Urine Opiates Screen Negative (NEGATIVE) Urine Methadone Screen Negative (NEGATIVE) Ur Barbiturates Screen Negative (NEGATIVE) Ur Phencyclidine Scrn Negative (NEGATIVE) Ur Amphetamines Screen Negative (NEGATIVE) U Benzodiazepines Scrn Negative (NEGATIVE) U Oth Cocaine Metabols Negative (NEGATIVE) U Cannabinoids Screen Negative (NEGATIVE) Alcohol, Quantitative (0-10) mg/dl Blood Type Antibody Screen 10/05/17 10/05/17 10/05/17 Range/Units 21:24 16:31 14:48 WBC 6.8 (4.8-10.8) K/uL RBC 2.29 L (4.40-5.90) Mil/uL Hgb 5.4 L* D (12.0-18.0) g/dL Hct 17.3 L (35.0-51.0) % MCV 75.8 L D (80.0-94.0) fL MCH 23.6 L (27.0-31.0) pg MCHC 31.1 L (33.0-37.0) g/dL RDW 23.3 H (11.5-14.5) % Plt Count 40 L (130-400) K/uL MPV 9.1 (7.2-11.7) fL Neut % (Auto) 73.7 (50.0-75.0) % Lymph % (Auto) 13.3 L (20.0-40.0) % Hood % (Auto) 12.5 H (0.0-10.0) % Eos % (Auto) 0.0 (0.0-4.0) % Baso % (Auto) 0.5 (0.0-2.0) % Neut # (Auto) 5.0 (1.8-7.0) K/uL Lymph # (Auto) 0.9 L (1.0-4.3) K/uL Hood # (Auto) 0.9 H (0.0-0.8) K/uL Eos # (Auto) 0.0 (0.0-0.7) K/uL Baso # (Auto) 0.0 (0.0-0.2) K/uL Neutrophils % (Manual) (50-75) % Band Neutrophils % (0-2) % Lymphocytes % (Manual) (20-40) % Monocytes % (Manual) (0-10) % Differential Comment Platelet Estimate (NORMAL) Hypochromasia (manual) Basophilic Stippling Anisocytosis (manual) Microcytosis (manual) Smear Path Review Retic Count Haptoglobin (30.0-200.0) mg/dL PT (9.7-12.2) SECONDS INR APTT (21-34) SECONDS Sodium (132-148) mmol/L Potassium (3.6-5.2) mmol/L Chloride (98-107) mmol/L Carbon Dioxide (22-30) mmol/L Anion Gap (10-20) BUN (9-20) mg/dL Creatinine (0.8-1.5) mg/dL Est GFR ( Amer) Est GFR (Non-Af Amer) POC Glucose (mg/dL) (65-110) mg/dL Random Glucose (75-110) mg/dL Calcium (8.6-10.4) mg/dl Phosphorus (2.5-4.5) mg/dL Magnesium (1.6-2.3) mg/dL Iron (49-181) ug/dL TIBC (250-450) ug/dL % Saturation 3 L (20-55) Ferritin ng/mL Total Bilirubin (0.2-1.3) mg/dL AST (17-59) U/L ALT (21-72) U/L Alkaline Phosphatase (38-126) U/L Ammonia (9-33) umol/L Troponin I (0.00-0.120) ng/mL NT-Pro-B Natriuret Pep (0-450) pg/mL Total Protein (6.3-8.3) g/dL Albumin (3.5-5.0) g/dL Globulin (2.2-3.9) gm/dL Albumin/Globulin Ratio (1.0-2.1) Free T4 (0.78-2.19) ng/dL Thyroxine (T4) (5.5-11.0) ug/dL TSH 3rd Generation (0.46-4.68) mIU/L Urine Color Yellow (YELLOW) Urine Clarity Clear (Clear) Urine pH 6.0 (5.0-8.0) Ur Specific [place] 1.038 H (1.003-1.030) Urine Protein Negative (NEGATIVE) mg/dL Urine Glucose (UA) Normal (Normal) mg/dL Urine Ketones Negative (NEGATIVE) mg/dL Urine Blood Negative (NEGATIVE) Urine Nitrate Negative (NEGATIVE) Urine Bilirubin Negative (NEGATIVE) Urine Urobilinogen 4.0 (0.2-1.0) mg/dL Ur Leukocyte Esterase Neg (Negative) Wendy/uL Urine WBC (Auto) 1 (0-5) /hpf Urine RBC (Auto) 1 (0-3) /hpf Ur Squamous Epith Cells < 1 (0-5) /hpf Urine Opiates Screen (NEGATIVE) Urine Methadone Screen (NEGATIVE) Ur Barbiturates Screen (NEGATIVE) Ur Phencyclidine Scrn (NEGATIVE) Ur Amphetamines Screen (NEGATIVE) U Benzodiazepines Scrn (NEGATIVE) U Oth Cocaine Metabols (NEGATIVE) U Cannabinoids Screen (NEGATIVE) Alcohol, Quantitative (0-10) mg/dl Blood Type Antibody Screen 10/05/17 10/05/17 10/05/17 Range/Units 14:48 13:53 13:53 WBC (4.8-10.8) K/uL RBC (4.40-5.90) Mil/uL Hgb (12.0-18.0) g/dL Hct (35.0-51.0) % MCV (80.0-94.0) fL MCH (27.0-31.0) pg MCHC (33.0-37.0) g/dL RDW (11.5-14.5) % Plt Count (130-400) K/uL MPV (7.2-11.7) fL Neut % (Auto) (50.0-75.0) % Lymph % (Auto) (20.0-40.0) % Hood % (Auto) (0.0-10.0) % Eos % (Auto) (0.0-4.0) % Baso % (Auto) (0.0-2.0) % Neut # (Auto) (1.8-7.0) K/uL Lymph # (Auto) (1.0-4.3) K/uL Hood # (Auto) (0.0-0.8) K/uL Eos # (Auto) (0.0-0.7) K/uL Baso # (Auto) (0.0-0.2) K/uL Neutrophils % (Manual) (50-75) % Band Neutrophils % (0-2) % Lymphocytes % (Manual) (20-40) % Monocytes % (Manual) (0-10) % Differential Comment Platelet Estimate (NORMAL) Hypochromasia (manual) Basophilic Stippling Anisocytosis (manual) Microcytosis (manual) Smear Path Review Retic Count Haptoglobin (30.0-200.0) mg/dL PT (9.7-12.2) SECONDS INR APTT (21-34) SECONDS Sodium (132-148) mmol/L Potassium (3.6-5.2) mmol/L Chloride (98-107) mmol/L Carbon Dioxide (22-30) mmol/L Anion Gap (10-20) BUN (9-20) mg/dL Creatinine (0.8-1.5) mg/dL Est GFR ( Amer) Est GFR (Non-Af Amer) POC Glucose (mg/dL) (65-110) mg/dL Random Glucose (75-110) mg/dL Calcium (8.6-10.4) mg/dl Phosphorus (2.5-4.5) mg/dL Magnesium (1.6-2.3) mg/dL Iron 11 L (49-181) ug/dL TIBC 373 (250-450) ug/dL % Saturation 3 L (20-55) Ferritin 19.9 ng/mL Total Bilirubin (0.2-1.3) mg/dL AST (17-59) U/L ALT (21-72) U/L Alkaline Phosphatase (38-126) U/L Ammonia (9-33) umol/L Troponin I (0.00-0.120) ng/mL NT-Pro-B Natriuret Pep (0-450) pg/mL Total Protein (6.3-8.3) g/dL Albumin (3.5-5.0) g/dL Globulin (2.2-3.9) gm/dL Albumin/Globulin Ratio (1.0-2.1) Free T4 1.52 (0.78-2.19) ng/dL Thyroxine (T4) (5.5-11.0) ug/dL TSH 3rd Generation (0.46-4.68) mIU/L Urine Color (YELLOW) Urine Clarity (Clear) Urine pH (5.0-8.0) Ur Specific [place] (1.003-1.030) Urine Protein (NEGATIVE) mg/dL Urine Glucose (UA) (Normal) mg/dL Urine Ketones (NEGATIVE) mg/dL Urine Blood (NEGATIVE) Urine Nitrate (NEGATIVE) Urine Bilirubin (NEGATIVE) Urine Urobilinogen (0.2-1.0) mg/dL Ur Leukocyte Esterase (Negative) Wendy/uL Urine WBC (Auto) (0-5) /hpf Urine RBC (Auto) (0-3) /hpf Ur Squamous Epith Cells (0-5) /hpf Urine Opiates Screen (NEGATIVE) Urine Methadone Screen (NEGATIVE) Ur Barbiturates Screen (NEGATIVE) Ur Phencyclidine Scrn (NEGATIVE) Ur Amphetamines Screen (NEGATIVE) U Benzodiazepines Scrn (NEGATIVE) U Oth Cocaine Metabols (NEGATIVE) U Cannabinoids Screen (NEGATIVE) Alcohol, Quantitative (0-10) mg/dl Blood Type Antibody Screen 10/05/17 10/05/17 10/05/17 Range/Units 13:53 13:53 11:41 WBC (4.8-10.8) K/uL RBC (4.40-5.90) Mil/uL Hgb (12.0-18.0) g/dL Hct (35.0-51.0) % MCV (80.0-94.0) fL MCH (27.0-31.0) pg MCHC (33.0-37.0) g/dL RDW (11.5-14.5) % Plt Count (130-400) K/uL MPV (7.2-11.7) fL Neut % (Auto) (50.0-75.0) % Lymph % (Auto) (20.0-40.0) % Hood % (Auto) (0.0-10.0) % Eos % (Auto) (0.0-4.0) % Baso % (Auto) (0.0-2.0) % Neut # (Auto) (1.8-7.0) K/uL Lymph # (Auto) (1.0-4.3) K/uL Hood # (Auto) (0.0-0.8) K/uL Eos # (Auto) (0.0-0.7) K/uL Baso # (Auto) (0.0-0.2) K/uL Neutrophils % (Manual) (50-75) % Band Neutrophils % (0-2) % Lymphocytes % (Manual) (20-40) % Monocytes % (Manual) (0-10) % Differential Comment Platelet Estimate (NORMAL) Hypochromasia (manual) Basophilic Stippling Anisocytosis (manual) Microcytosis (manual) Smear Path Review Retic Count 5.6 H Haptoglobin 50.1 (30.0-200.0) mg/dL PT (9.7-12.2) SECONDS INR APTT (21-34) SECONDS Sodium (132-148) mmol/L Potassium (3.6-5.2) mmol/L Chloride (98-107) mmol/L Carbon Dioxide (22-30) mmol/L Anion Gap (10-20) BUN (9-20) mg/dL Creatinine (0.8-1.5) mg/dL Est GFR ( Amer) Est GFR (Non-Af Amer) POC Glucose (mg/dL) (65-110) mg/dL Random Glucose (75-110) mg/dL Calcium (8.6-10.4) mg/dl Phosphorus (2.5-4.5) mg/dL Magnesium (1.6-2.3) mg/dL Iron (49-181) ug/dL TIBC (250-450) ug/dL % Saturation (20-55) Ferritin ng/mL Total Bilirubin (0.2-1.3) mg/dL AST (17-59) U/L ALT (21-72) U/L Alkaline Phosphatase (38-126) U/L Ammonia (9-33) umol/L Troponin I (0.00-0.120) ng/mL NT-Pro-B Natriuret Pep (0-450) pg/mL Total Protein (6.3-8.3) g/dL Albumin (3.5-5.0) g/dL Globulin (2.2-3.9) gm/dL Albumin/Globulin Ratio (1.0-2.1) Free T4 (0.78-2.19) ng/dL Thyroxine (T4) (5.5-11.0) ug/dL TSH 3rd Generation (0.46-4.68) mIU/L Urine Color (YELLOW) Urine Clarity (Clear) Urine pH (5.0-8.0) Ur Specific [place] (1.003-1.030) Urine Protein (NEGATIVE) mg/dL Urine Glucose (UA) (Normal) mg/dL Urine Ketones (NEGATIVE) mg/dL Urine Blood (NEGATIVE) Urine Nitrate (NEGATIVE) Urine Bilirubin (NEGATIVE) Urine Urobilinogen (0.2-1.0) mg/dL Ur Leukocyte Esterase (Negative) Wendy/uL Urine WBC (Auto) (0-5) /hpf Urine RBC (Auto) (0-3) /hpf Ur Squamous Epith Cells (0-5) /hpf Urine Opiates Screen (NEGATIVE) Urine Methadone Screen (NEGATIVE) Ur Barbiturates Screen (NEGATIVE) Ur Phencyclidine Scrn (NEGATIVE) Ur Amphetamines Screen (NEGATIVE) U Benzodiazepines Scrn (NEGATIVE) U Oth Cocaine Metabols (NEGATIVE) U Cannabinoids Screen (NEGATIVE) Alcohol, Quantitative (0-10) mg/dl Blood Type O POSITIVE Antibody Screen Negative 10/05/17 10/05/17 10/05/17 Range/Units 11:10 11:10 11:10 WBC (4.8-10.8) K/uL RBC (4.40-5.90) Mil/uL Hgb (12.0-18.0) g/dL Hct (35.0-51.0) % MCV (80.0-94.0) fL MCH (27.0-31.0) pg MCHC (33.0-37.0) g/dL RDW (11.5-14.5) % Plt Count (130-400) K/uL MPV (7.2-11.7) fL Neut % (Auto) (50.0-75.0) % Lymph % (Auto) (20.0-40.0) % Hood % (Auto) (0.0-10.0) % Eos % (Auto) (0.0-4.0) % Baso % (Auto) (0.0-2.0) % Neut # (Auto) (1.8-7.0) K/uL Lymph # (Auto) (1.0-4.3) K/uL Hood # (Auto) (0.0-0.8) K/uL Eos # (Auto) (0.0-0.7) K/uL Baso # (Auto) (0.0-0.2) K/uL Neutrophils % (Manual) (50-75) % Band Neutrophils % (0-2) % Lymphocytes % (Manual) (20-40) % Monocytes % (Manual) (0-10) % Differential Comment Platelet Estimate (NORMAL) Hypochromasia (manual) Basophilic Stippling Anisocytosis (manual) Microcytosis (manual) Smear Path Review Retic Count Haptoglobin (30.0-200.0) mg/dL PT 17.5 H (9.7-12.2) SECONDS INR 1.6 APTT 32 (21-34) SECONDS Sodium 139 (132-148) mmol/L Potassium 3.3 L (3.6-5.2) mmol/L Chloride 103 (98-107) mmol/L Carbon Dioxide 16 L (22-30) mmol/L Anion Gap 24 H (10-20) BUN 25 H (9-20) mg/dL Creatinine 0.8 (0.8-1.5) mg/dL Est GFR ( Amer) > 60 Est GFR (Non-Af Amer) > 60 POC Glucose (mg/dL) (65-110) mg/dL Random Glucose 120 H (75-110) mg/dL Calcium 8.4 L (8.6-10.4) mg/dl Phosphorus 3.7 (2.5-4.5) mg/dL Magnesium 1.5 L (1.6-2.3) mg/dL Iron (49-181) ug/dL TIBC (250-450) ug/dL % Saturation (20-55) Ferritin ng/mL Total Bilirubin 4.0 H (0.2-1.3) mg/dL AST 111 H (17-59) U/L ALT 48 (21-72) U/L Alkaline Phosphatase 101 (38-126) U/L Ammonia 55 H (9-33) umol/L Troponin I 0.0340 (0.00-0.120) ng/mL NT-Pro-B Natriuret Pep 111 (0-450) pg/mL Total Protein 6.3 (6.3-8.3) g/dL Albumin 3.1 L (3.5-5.0) g/dL Globulin 3.2 (2.2-3.9) gm/dL Albumin/Globulin Ratio 1.0 (1.0-2.1) Free T4 (0.78-2.19) ng/dL Thyroxine (T4) (5.5-11.0) ug/dL TSH 3rd Generation 2.02 (0.46-4.68) mIU/L Urine Color (YELLOW) Urine Clarity (Clear) Urine pH (5.0-8.0) Ur Specific [place] (1.003-1.030) Urine Protein (NEGATIVE) mg/dL Urine Glucose (UA) (Normal) mg/dL Urine Ketones (NEGATIVE) mg/dL Urine Blood (NEGATIVE) Urine Nitrate (NEGATIVE) Urine Bilirubin (NEGATIVE) Urine Urobilinogen (0.2-1.0) mg/dL Ur Leukocyte Esterase (Negative) Wendy/uL Urine WBC (Auto) (0-5) /hpf Urine RBC (Auto) (0-3) /hpf Ur Squamous Epith Cells (0-5) /hpf Urine Opiates Screen (NEGATIVE) Urine Methadone Screen (NEGATIVE) Ur Barbiturates Screen (NEGATIVE) Ur Phencyclidine Scrn (NEGATIVE) Ur Amphetamines Screen (NEGATIVE) U Benzodiazepines Scrn (NEGATIVE) U Oth Cocaine Metabols (NEGATIVE) U Cannabinoids Screen (NEGATIVE) Alcohol, Quantitative < 10 (0-10) mg/dl Blood Type Antibody Screen 10/05/17 10/05/17 Range/Units 11:10 10:49 WBC 8.2 (4.8-10.8) K/uL RBC 1.69 L (4.40-5.90) Mil/uL Hgb 3.3 L* (12.0-18.0) g/dL Hct 11.5 L (35.0-51.0) % MCV 67.9 L (80.0-94.0) fL MCH 19.6 L (27.0-31.0) pg MCHC 28.9 L (33.0-37.0) g/dL RDW 18.2 H (11.5-14.5) % Plt Count 48 L (130-400) K/uL MPV 9.0 (7.2-11.7) fL Neut % (Auto) 77.6 H (50.0-75.0) % Lymph % (Auto) 8.4 L (20.0-40.0) % Hood % (Auto) 13.3 H (0.0-10.0) % Eos % (Auto) 0.0 (0.0-4.0) % Baso % (Auto) 0.7 (0.0-2.0) % Neut # (Auto) 6.4 (1.8-7.0) K/uL Lymph # (Auto) 0.7 L (1.0-4.3) K/uL Hood # (Auto) 1.1 H (0.0-0.8) K/uL Eos # (Auto) 0.0 (0.0-0.7) K/uL Baso # (Auto) 0.1 (0.0-0.2) K/uL Neutrophils % (Manual) 79 H (50-75) % Band Neutrophils % 5 H (0-2) % Lymphocytes % (Manual) 7 L (20-40) % Monocytes % (Manual) 9 (0-10) % Differential Comment Platelet Estimate Decreased L (NORMAL) Hypochromasia (manual) Marked Basophilic Stippling Slight Anisocytosis (manual) Moderate Microcytosis (manual) Moderate Smear Path Review Retic Count Cancelled Haptoglobin (30.0-200.0) mg/dL PT (9.7-12.2) SECONDS INR APTT (21-34) SECONDS Sodium (132-148) mmol/L Potassium (3.6-5.2) mmol/L Chloride (98-107) mmol/L Carbon Dioxide (22-30) mmol/L Anion Gap (10-20) BUN (9-20) mg/dL Creatinine (0.8-1.5) mg/dL Est GFR ( Amer) Est GFR (Non-Af Amer) POC Glucose (mg/dL) 133 H (65-110) mg/dL Random Glucose (75-110) mg/dL Calcium (8.6-10.4) mg/dl Phosphorus (2.5-4.5) mg/dL Magnesium (1.6-2.3) mg/dL Iron (49-181) ug/dL TIBC (250-450) ug/dL % Saturation (20-55) Ferritin ng/mL Total Bilirubin (0.2-1.3) mg/dL AST (17-59) U/L ALT (21-72) U/L Alkaline Phosphatase (38-126) U/L Ammonia (9-33) umol/L Troponin I (0.00-0.120) ng/mL NT-Pro-B Natriuret Pep (0-450) pg/mL Total Protein (6.3-8.3) g/dL Albumin (3.5-5.0) g/dL Globulin (2.2-3.9) gm/dL Albumin/Globulin Ratio (1.0-2.1) Free T4 (0.78-2.19) ng/dL Thyroxine (T4) (5.5-11.0) ug/dL TSH 3rd Generation (0.46-4.68) mIU/L Urine Color (YELLOW) Urine Clarity (Clear) Urine pH (5.0-8.0) Ur Specific [place] (1.003-1.030) Urine Protein (NEGATIVE) mg/dL Urine Glucose (UA) (Normal) mg/dL Urine Ketones (NEGATIVE) mg/dL Urine Blood (NEGATIVE) Urine Nitrate (NEGATIVE) Urine Bilirubin (NEGATIVE) Urine Urobilinogen (0.2-1.0) mg/dL Ur Leukocyte Esterase (Negative) Wendy/uL Urine WBC (Auto) (0-5) /hpf Urine RBC (Auto) (0-3) /hpf Ur Squamous Epith Cells (0-5) /hpf Urine Opiates Screen (NEGATIVE) Urine Methadone Screen (NEGATIVE) Ur Barbiturates Screen (NEGATIVE) Ur Phencyclidine Scrn (NEGATIVE) Ur Amphetamines Screen (NEGATIVE) U Benzodiazepines Scrn (NEGATIVE) U Oth Cocaine Metabols (NEGATIVE) U Cannabinoids Screen (NEGATIVE) Alcohol, Quantitative (0-10) mg/dl Blood Type Antibody Screen Laboratory Results - last 24 hr 10/05/17 10/05/17 10/05/17 10:49 11:10 11:10 WBC 8.2 RBC 1.69 L Hgb 3.3 L* Hct 11.5 L MCV 67.9 L MCH 19.6 L MCHC 28.9 L RDW 18.2 H Plt Count 48 L MPV 9.0 Neut % (Auto) 77.6 H Lymph % (Auto) 8.4 L Hood % (Auto) 13.3 H Eos % (Auto) 0.0 Baso % (Auto) 0.7 Neut # (Auto) 6.4 Lymph # (Auto) 0.7 L Hood # (Auto) 1.1 H Eos # (Auto) 0.0 Baso # (Auto) 0.1 Neutrophils % (Manual) 79 H Band Neutrophils % 5 H Lymphocytes % (Manual) 7 L Monocytes % (Manual) 9 Differential Comment Platelet Estimate Decreased L Hypochromasia (manual) Marked Basophilic Stippling Slight Anisocytosis (manual) Moderate Microcytosis (manual) Moderate Smear Path Review Retic Count Cancelled Haptoglobin PT 17.5 H INR 1.6 APTT 32 Sodium Potassium Chloride Carbon Dioxide Anion Gap BUN Creatinine Est GFR ( Amer) Est GFR (Non-Af Amer) POC Glucose (mg/dL) 133 H Random Glucose Calcium Phosphorus Magnesium Iron TIBC % Saturation Ferritin Total Bilirubin AST ALT Alkaline Phosphatase Ammonia Troponin I NT-Pro-B Natriuret Pep Total Protein Albumin Globulin Albumin/Globulin Ratio Free T4 Thyroxine (T4) TSH 3rd Generation Urine Color Urine Clarity Urine pH Ur Specific [place] Urine Protein Urine Glucose (UA) Urine Ketones Urine Blood Urine Nitrate Urine Bilirubin Urine Urobilinogen Ur Leukocyte Esterase Urine WBC (Auto) Urine RBC (Auto) Ur Squamous Epith Cells Urine Opiates Screen Urine Methadone Screen Ur Barbiturates Screen Ur Phencyclidine Scrn Ur Amphetamines Screen U Benzodiazepines Scrn U Oth Cocaine Metabols U Cannabinoids Screen Alcohol, Quantitative Blood Type Antibody Screen 10/05/17 10/05/17 10/05/17 11:10 11:10 11:41 WBC RBC Hgb Hct MCV MCH MCHC RDW Plt Count MPV Neut % (Auto) Lymph % (Auto) Hood % (Auto) Eos % (Auto) Baso % (Auto) Neut # (Auto) Lymph # (Auto) Hood # (Auto) Eos # (Auto) Baso # (Auto) Neutrophils % (Manual) Band Neutrophils % Lymphocytes % (Manual) Monocytes % (Manual) Differential Comment Platelet Estimate Hypochromasia (manual) Basophilic Stippling Anisocytosis (manual) Microcytosis (manual) Smear Path Review Retic Count Haptoglobin PT INR APTT Sodium 139 Potassium 3.3 L Chloride 103 Carbon Dioxide 16 L Anion Gap 24 H BUN 25 H Creatinine 0.8 Est GFR ( Amer) > 60 Est GFR (Non-Af Amer) > 60 POC Glucose (mg/dL) Random Glucose 120 H Calcium 8.4 L Phosphorus 3.7 Magnesium 1.5 L Iron TIBC % Saturation Ferritin Total Bilirubin 4.0 H AST 111 H ALT 48 Alkaline Phosphatase 101 Ammonia 55 H Troponin I 0.0340 NT-Pro-B Natriuret Pep 111 Total Protein 6.3 Albumin 3.1 L Globulin 3.2 Albumin/Globulin Ratio 1.0 Free T4 Thyroxine (T4) TSH 3rd Generation 2.02 Urine Color Urine Clarity Urine pH Ur Specific [place] Urine Protein Urine Glucose (UA) Urine Ketones Urine Blood Urine Nitrate Urine Bilirubin Urine Urobilinogen Ur Leukocyte Esterase Urine WBC (Auto) Urine RBC (Auto) Ur Squamous Epith Cells Urine Opiates Screen Urine Methadone Screen Ur Barbiturates Screen Ur Phencyclidine Scrn Ur Amphetamines Screen U Benzodiazepines Scrn U Oth Cocaine Metabols U Cannabinoids Screen Alcohol, Quantitative < 10 Blood Type O POSITIVE Antibody Screen Negative 10/05/17 10/05/17 10/05/17 13:53 13:53 13:53 WBC RBC Hgb Hct MCV MCH MCHC RDW Plt Count MPV Neut % (Auto) Lymph % (Auto) Hood % (Auto) Eos % (Auto) Baso % (Auto) Neut # (Auto) Lymph # (Auto) Hood # (Auto) Eos # (Auto) Baso # (Auto) Neutrophils % (Manual) Band Neutrophils % Lymphocytes % (Manual) Monocytes % (Manual) Differential Comment Platelet Estimate Hypochromasia (manual) Basophilic Stippling Anisocytosis (manual) Microcytosis (manual) Smear Path Review Retic Count 5.6 H Haptoglobin 50.1 PT INR APTT Sodium Potassium Chloride Carbon Dioxide Anion Gap BUN Creatinine Est GFR ( Amer) Est GFR (Non-Af Amer) POC Glucose (mg/dL) Random Glucose Calcium Phosphorus Magnesium Iron TIBC % Saturation Ferritin 19.9 Total Bilirubin AST ALT Alkaline Phosphatase Ammonia Troponin I NT-Pro-B Natriuret Pep Total Protein Albumin Globulin Albumin/Globulin Ratio Free T4 Thyroxine (T4) TSH 3rd Generation Urine Color Urine Clarity Urine pH Ur Specific [place] Urine Protein Urine Glucose (UA) Urine Ketones Urine Blood Urine Nitrate Urine Bilirubin Urine Urobilinogen Ur Leukocyte Esterase Urine WBC (Auto) Urine RBC (Auto) Ur Squamous Epith Cells Urine Opiates Screen Urine Methadone Screen Ur Barbiturates Screen Ur Phencyclidine Scrn Ur Amphetamines Screen U Benzodiazepines Scrn U Oth Cocaine Metabols U Cannabinoids Screen Alcohol, Quantitative Blood Type Antibody Screen 10/05/17 10/05/17 10/05/17 13:53 14:48 14:48 WBC RBC Hgb Hct MCV MCH MCHC RDW Plt Count MPV Neut % (Auto) Lymph % (Auto) Hood % (Auto) Eos % (Auto) Baso % (Auto) Neut # (Auto) Lymph # (Auto) Hood # (Auto) Eos # (Auto) Baso # (Auto) Neutrophils % (Manual) Band Neutrophils % Lymphocytes % (Manual) Monocytes % (Manual) Differential Comment Platelet Estimate Hypochromasia (manual) Basophilic Stippling Anisocytosis (manual) Microcytosis (manual) Smear Path Review Retic Count Haptoglobin PT INR APTT Sodium Potassium Chloride Carbon Dioxide Anion Gap BUN Creatinine Est GFR ( Amer) Est GFR (Non-Af Amer) POC Glucose (mg/dL) Random Glucose Calcium Phosphorus Magnesium Iron 11 L TIBC 373 % Saturation 3 L 3 L Ferritin Total Bilirubin AST ALT Alkaline Phosphatase Ammonia Troponin I NT-Pro-B Natriuret Pep Total Protein Albumin Globulin Albumin/Globulin Ratio Free T4 1.52 Thyroxine (T4) TSH 3rd Generation Urine Color Urine Clarity Urine pH Ur Specific [place] Urine Protein Urine Glucose (UA) Urine Ketones Urine Blood Urine Nitrate Urine Bilirubin Urine Urobilinogen Ur Leukocyte Esterase Urine WBC (Auto) Urine RBC (Auto) Ur Squamous Epith Cells Urine Opiates Screen Urine Methadone Screen Ur Barbiturates Screen Ur Phencyclidine Scrn Ur Amphetamines Screen U Benzodiazepines Scrn U Oth Cocaine Metabols U Cannabinoids Screen Alcohol, Quantitative Blood Type Antibody Screen 10/05/17 10/05/17 10/05/17 16:31 21:24 21:24 WBC 6.8 RBC 2.29 L Hgb 5.4 L* D Hct 17.3 L MCV 75.8 L D MCH 23.6 L MCHC 31.1 L RDW 23.3 H Plt Count 40 L MPV 9.1 Neut % (Auto) 73.7 Lymph % (Auto) 13.3 L Hood % (Auto) 12.5 H Eos % (Auto) 0.0 Baso % (Auto) 0.5 Neut # (Auto) 5.0 Lymph # (Auto) 0.9 L Hood # (Auto) 0.9 H Eos # (Auto) 0.0 Baso # (Auto) 0.0 Neutrophils % (Manual) Band Neutrophils % Lymphocytes % (Manual) Monocytes % (Manual) Differential Comment Platelet Estimate Hypochromasia (manual) Basophilic Stippling Anisocytosis (manual) Microcytosis (manual) Smear Path Review Retic Count Haptoglobin PT INR APTT Sodium Potassium Chloride Carbon Dioxide Anion Gap BUN Creatinine Est GFR ( Amer) Est GFR (Non-Af Amer) POC Glucose (mg/dL) Random Glucose Calcium Phosphorus Magnesium Iron TIBC % Saturation Ferritin Total Bilirubin AST ALT Alkaline Phosphatase Ammonia Troponin I NT-Pro-B Natriuret Pep Total Protein Albumin Globulin Albumin/Globulin Ratio Free T4 Thyroxine (T4) TSH 3rd Generation Urine Color Yellow Urine Clarity Clear Urine pH 6.0 Ur Specific [place] 1.038 H Urine Protein Negative Urine Glucose (UA) Normal Urine Ketones Negative Urine Blood Negative Urine Nitrate Negative Urine Bilirubin Negative Urine Urobilinogen 4.0 Ur Leukocyte Esterase Neg Urine WBC (Auto) 1 Urine RBC (Auto) 1 Ur Squamous Epith Cells < 1 Urine Opiates Screen Negative Urine Methadone Screen Negative Ur Barbiturates Screen Negative Ur Phencyclidine Scrn Negative Ur Amphetamines Screen Negative U Benzodiazepines Scrn Negative U Oth Cocaine Metabols Negative U Cannabinoids Screen Negative Alcohol, Quantitative Blood Type Antibody Screen 10/05/17 10/06/17 10/06/17 21:24 06:21 06:21 WBC 6.6 5.7 RBC 2.72 L 3.17 L Hgb 6.6 L 8.0 L Hct 20.5 L 24.2 L MCV 75.2 L 76.3 L MCH 24.4 L 25.1 L MCHC 32.4 L 32.9 L RDW 21.7 H 20.8 H Plt Count 46 L 50 L MPV 8.5 8.9 Neut % (Auto) 77.9 H 76.2 H Lymph % (Auto) 10.4 L 12.3 L Hood % (Auto) 11.1 H 10.5 H Eos % (Auto) 0.0 0.0 Baso % (Auto) 0.6 1.0 Neut # (Auto) 5.1 4.3 Lymph # (Auto) 0.7 L 0.7 L Hood # (Auto) 0.7 0.6 Eos # (Auto) 0.0 0.0 Baso # (Auto) 0.0 0.1 Neutrophils % (Manual) Band Neutrophils % Lymphocytes % (Manual) Monocytes % (Manual) Differential Comment Platelet Estimate Hypochromasia (manual) Basophilic Stippling Anisocytosis (manual) Microcytosis (manual) Smear Path Review Retic Count Haptoglobin PT INR APTT Sodium 139 Potassium 3.4 L Chloride 106 Carbon Dioxide 24 Anion Gap 12 BUN 20 Creatinine 0.7 L Est GFR ( Amer) > 60 Est GFR (Non-Af Amer) > 60 POC Glucose (mg/dL) Random Glucose 114 H Calcium 7.6 L Phosphorus 2.5 Magnesium 2.1 Iron TIBC % Saturation Ferritin Total Bilirubin 4.7 H AST 128 H ALT 48 Alkaline Phosphatase 84 Ammonia Troponin I NT-Pro-B Natriuret Pep Total Protein 5.9 L Albumin 2.8 L Globulin 3.2 Albumin/Globulin Ratio 0.9 L Free T4 Thyroxine (T4) 7.03 TSH 3rd Generation 0.25 L Urine Color Urine Clarity Urine pH Ur Specific [place] Urine Protein Urine Glucose (UA) Urine Ketones Urine Blood Urine Nitrate Urine Bilirubin Urine Urobilinogen Ur Leukocyte Esterase Urine WBC (Auto) Urine RBC (Auto) Ur Squamous Epith Cells Urine Opiates Screen Urine Methadone Screen Ur Barbiturates Screen Ur Phencyclidine Scrn Ur Amphetamines Screen U Benzodiazepines Scrn U Oth Cocaine Metabols U Cannabinoids Screen Alcohol, Quantitative Blood Type Antibody Screen 10/06/17 10/06/17 06:21 06:21 WBC RBC Hgb Hct MCV MCH MCHC RDW Plt Count MPV Neut % (Auto) Lymph % (Auto) Hood % (Auto) Eos % (Auto) Baso % (Auto) Neut # (Auto) Lymph # (Auto) Hood # (Auto) Eos # (Auto) Baso # (Auto) Neutrophils % (Manual) Band Neutrophils % Lymphocytes % (Manual) Monocytes % (Manual) Differential Comment Platelet Estimate Hypochromasia (manual) Basophilic Stippling Anisocytosis (manual) Microcytosis (manual) Smear Path Review Retic Count Haptoglobin 47.4 PT 15.1 H INR 1.4 APTT 30 Sodium Potassium Chloride Carbon Dioxide Anion Gap BUN Creatinine Est GFR ( Amer) Est GFR (Non-Af Amer) POC Glucose (mg/dL) Random Glucose Calcium Phosphorus Magnesium Iron TIBC % Saturation Ferritin Total Bilirubin AST ALT Alkaline Phosphatase Ammonia Troponin I NT-Pro-B Natriuret Pep Total Protein Albumin Globulin Albumin/Globulin Ratio Free T4 Thyroxine (T4) TSH 3rd Generation Urine Color Urine Clarity Urine pH Ur Specific [place] Urine Protein Urine Glucose (UA) Urine Ketones Urine Blood Urine Nitrate Urine Bilirubin Urine Urobilinogen Ur Leukocyte Esterase Urine WBC (Auto) Urine RBC (Auto) Ur Squamous Epith Cells Urine Opiates Screen Urine Methadone Screen Ur Barbiturates Screen Ur Phencyclidine Scrn Ur Amphetamines Screen U Benzodiazepines Scrn U Oth Cocaine Metabols U Cannabinoids Screen Alcohol, Quantitative Blood Type Antibody Screen EKG/Cardiology Studies: Cardiology / EKG Studies 10/05/17 10:46 ELECTROCARDIOGRAM Stat Comment: Mode Of Transportation: BED Reason For Exam: SOB 10/05/17 11:01 ELECTROCARDIOGRAM Stat Comment: Mode Of Transportation: BED Reason For Exam: SOB Fingerstick Blood Sugar Results: 133 Review of Systems - Review of Systems All systems: reviewed and no additional remarkable complaints except (as per HPI ) Critical Care Progress Note - Prophylaxis GI Prophylaxis GI: PPI - Prophylaxis DVT Prophylaxis DVT: Not Indicated (s/p endoscopy) - Nutrition Nutrition: Nutrition Category Date Time Status NPO Diet [DIET] Diets 10/06/17 Breakfast Active Assessment/Plan - Assessment and Plan (Free Text) Assessment: This is a 36 year old male without significant PMhx who presented to the ED via ambulance with complaints of weakness and dizziness for the past month, worsening over the past 5 days. He endorses a history of dark tarry stools and vomiting containing dark blood. In the ED, pt was noted to be severely anemic ( hgb 3.3) with thrombocytopenia (48). ICU was consulted due to severe anemia with thrombocytopenia. Pt is s/p transfusion of 5 units pRBCs, with adequate response. Pt is s/p endoscopy, where esophageal varices were banded. Neuro: - monitor for mental status changes - Pt is AAOx3 at baseline - head ct is unremarkable - serum alcohol<10 - f/u ammonia level - ativan prn agitation Cardio: - pt is hemodynamically stable - maintain MAP>65mmHg - f/u echocardiogram Pulm: - spo2 96% on RA - maintain spo2>95% - NC prn - CXR (10/05) shows no active pulmonary disease GI: - abdominal/pelvic CT (10/05) with IV contrast showed hepatic cirrhosis. Retroperitoneal varices in the left upper abdomen. No definite esophageal varices. No ascites. Diffuse nonspecific thickening of the gallbladder wall, possibly related to hypoalbuminemia associated with cirrhosis. Patent portal vein. - endoscopy showed grade II esophageal varices. Incompletely eradicated, banded. Duodenitis. - continue octeotride gtt, protonix gtt as per GI - NPO for today as per GI - zofran prn nausea - transaminitis consistent with alcoholic hepatitis Heme: - chronic microcytic anemia, s/p 5 units pRBCs with appropriate response - H/h is 8.0/ 24.2 - PTT/INR is wnl, Pt is slightly elevated - heparin for vte ppx contraindicated at this time due to risk of bleeding Renal: - BUN/cr is wnl - good urine output - hypokalemia repleted - continue banana bag Endo: - maintain euglycemia - accucheck ACHS PPX: protonix gtt for pud; scds for vte ppx Dispo: continue to monitor in ICU Case was reviewed and discussed with attending physician, Dr. Harper
[2017-10-06] MEDS: Pantoprazole 80 MG in Sodium Chloride 0.9% 100 ML IV SCH ×3 (08:26→20:17)
[2017-10-06 12:06] LABS: BASO # 0.1 K/uL (0.0-0.2); BASO % 1.5 % (0.0-2.0); EOS % 0.7 % (0.0-4.0); HEMOGLOBIN 7.9 g/dL (12.0-18.0); LYMPH # 0.6 K/uL (1.0-4.3); LYMPH % 12.3 % (20.0-40.0); MEAN CELL VOLUME 76.2 fL (80.0-94.0); MEAN CORPUSCULAR HEMOGLOBIN 25.2 pg (27.0-31.0); MEAN PLATELET VOLUME 9.1 fL (7.2-11.7); MONO # 0.5 K/uL (0.0-0.8); MONO % 11.7 % (0.0-10.0); NEUT # 3.5 K/uL (1.8-7.0); NEUT % 73.8 % (50.0-75.0); NRBC % 0.4 % (0.0-2.0); RBC 3.12 Mil/uL (4.40-5.90); RED CELL DISTRIBUTION WIDTH 20.5 % (11.5-14.5); WHITE BLOOD COUNT 4.7 K/uL (4.8-10.8)
[2017-10-06 13:53] LABS: INR 1.4; PROTHROMBIN TIME 15.6 SECONDS (9.7-12.2)
[2017-10-06] MEDS: Folic Acid 1 MG, Thiamine 100 MG, Multivitamin (MVI) 10 ML in Dextrose 5% In Water 1,00... IV SCH (16:00)
--- NOTE | 2017-10-06 19:49 | CP.PCM.PN ---
Subjective - Date & Time of Evaluation Date of Evaluation: 10/06/17 Time of Evaluation: 17:00 - Subjective Subjective: Hospitalist Progress Note Patient was seen and examined at 5:00 PM 10/06/17 ICU Bed 7 36 year old male (PMHx of Alochol Abuse) who was admitted on 10/05/17 after he was discovered to have a very low hemoglobin with stool guaiac positive. He has since been transfused a total of 5 units of PRBC since his admission. 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 He is currently being monitored in the ICU. Currently upon FULL ROS: feels dizzy and drowsy NO other complaints upon FULL ROS NO chest pain NO palpitations NO abdominal pain NO n/v/d/c: no bowel movement today NO burning/pain with urination NO paresthesias NO edema NO new changes in vision NO new changes in hearing Exam: General: AAOX3, NAD, although complaining of dizziness/drowsiness he does not appear to be so HEENT: NCA, EOMI, PERRLA,, NO cervical/supraclavicular/submandibular lymphadenopathy, NO pharyngeal erythema/exudate, Nasal Turbinates are nonerythematous/nonedematous, Oral Mucosa is moist, NO thyromegaly Cardio: NS1 and NS2, NO M/R/G Resp: CTA B/L NO R/R/W GI: BSx4, Soft, NT, Central Obesity, NO guarding/rebound tenderness Ext: Pulses are strong and equal, Capillary Refill is 2 seconds, NO edema, Fingers and Toes Bilaterally are normal color/warm Neuro: CN II through XII are grossly intact Assessment and Plan: 1). Anemia Secondary to GI Bleed Upper EGD performed 10/06/17 and showed Grade II Varices present in the lower 1/3 of the esophagus and these were banded Has received a total of 5 units of PRBC and HgB/Hct is stable Protonix 8 mg/hr IV Octreotide 50 mcg/hr IV NPO for now GI Dr. Madsen 2). Alcohol Abuse States that he has 10 beers on [id number] but suspect that this is more Extensive conversation 10/06/17 with patient (Syrian translation being provided by ICU Resident Dr. Mily Koo) concerning the dangers that this was posing to his GI system and his overall health Patient will need to be provided with AA meeting information upon discharge Ativan 1 mg IV Q6H PRN signs of withdrawl Bannana Bag 75 ml/hr IV 1x/day 3). Liver Cirrhosis As seen on CT Abdomen/Pelvis Alcohol cessation is needed F/U Hepatitis Panel F/U HIV 1&2 4). Hypokalemia/Hypomagnesemia Being repleted 5). Metabolic Acidosis Likely secondary to the GI Bleed Resolved 6). Low Measured Calcium Low albumin likely contributing to this Continue to monitor 7). Elevated LFTs Secondary to the Alcohol abuse/Liver Cirrhosis Continue to monitor 8). Elevated Ammonia Level Lactulose 20 gm PO x 1 dose Monitor ammonia level 9). Low Albumin Likely secondary to the Liver Cirrhosis 10. Tachycardia Likely secondary to the Anemia secondary to the GI Bleed secondary to the Esophageal Varices Improved as the anemia has improved 11). Prophylaxis NO anticoagulation due to the GI Bleed Protonix Drip NPO for now Bannana Bag once a day F/U Blood Culture F/U Urine Culture F/U 2D Echocardiogram F/U HIV F/U Hepatitis Panel Disposition: Hgb/Hct will have to remain stable, he will have tolerate diet, and will need to be cleared by GI Bao Díaz D.O. Objective - Vital Signs/Intake and Output Vital Signs (last 24 hours): Temp Pulse Resp BP Pulse Ox 98.5 F 79 20 127/69 97 10/06/17 16:00 10/06/17 19:00 10/06/17 19:00 10/06/17 19:00 10/06/17 19:00 Intake and Output: 10/06/17 10/07/17 18:59 06:59 Intake Total 1640 95 Output Total 1050 Balance 590 95 - Medications Medications: Current Medications Pantoprazole Sodium 80 mg/ (Sodium Chloride) 100 mls @ 10 mls/hr IV .Q10H NICHOLE PRN Reason: 8 MG/HR Last Admin: 10/06/17 16:00 Dose: Not Given Octreotide Acetate 1,250 mcg/ (Sodium Chloride) 252.5 mls @ 10.1 mls/hr IV .Q24H NICHOLE; 50 MCG/HR PRN Reason: Protocol Last Admin: 10/06/17 16:01 Dose: 10.1 mls/hr Folic Acid 1 mg/ Thiamine HCl 100 mg/ Multivitamins/Vitamin C 10 ml/ Dextrose 1 ,011.2 mls @ 75 mls/hr IV Q24H NICHOLE Last Admin: 10/06/17 16:00 Dose: 75 mls/hr Lorazepam (Ativan) 1 mg IVP Q6H PRN PRN Reason: Anxiety Last Admin: 10/05/17 23:39 Dose: 1 mg Pneumococcal Polyvalent Vaccine (Pneumovax 23 Vaccine) 0.5 ml IM .ONCE ONE Stop: 10/08/17 10:01 - Labs Labs: 10/06/17 12:00 10/06/17 06:21 PT 15.6 SECONDS (9.7-12.2) H 10/06/17 13:44 INR 1.4 10/06/17 13:44 APTT 30 SECONDS (21-34) 10/06/17 06:21
[2017-10-07] MEDS: Dexmedetomidine Hydrochloride 200 MCG in Sodium Chloride 0.9% 48 ML IV PRN ×4 (02:32→08:13)
[2017-10-07] MEDS: Pantoprazole 80 MG in Sodium Chloride 0.9% 100 ML IV SCH (05:20)
[2017-10-07 06:09] LABS: HEMOGLOBIN 7.7 g/dL (12.0-18.0); MEAN CORPUSCULAR HEMOGLOBIN 24.9 pg (27.0-31.0); MEAN CORPUSCULAR HGB CONC 32.3 g/dL (33.0-37.0); MEAN PLATELET VOLUME 8.9 fL (7.2-11.7); RBC 3.11 Mil/uL (4.40-5.90); WHITE BLOOD COUNT 3.8 K/uL (4.8-10.8)
[2017-10-07 06:14] LABS: INR 1.5
[2017-10-07 06:34] LABS: ALB/GLOB RATIO 0.8 (1.0-2.1); ALBUMIN 2.5 g/dL (3.5-5.0); ALT/SGPT 52 U/L (21-72); AST/SGOT 121 U/L (17-59); BLOOD UREA NITROGEN 14 mg/dL (9-20); CALCIUM 7.1 mg/dl (8.6-10.4); GFR AFRICAN-AMERICAN > 60; GFR NON-AFRICAN AMERICAN > 60
[2017-10-07 06:56] LABS: HEPATITIS B SURFACE AG Negative (NEGATIVE)
[2017-10-07 07:02] LABS: HEPATITIS A IGM NEGATIVE (NEGATIVE); HEPATITIS B CORE AB NEGATIVE (NEGATIVE)
[2017-10-07 07:13] LABS: HEPATITIS C ANTIBODY NEGATIVE (NEGATIVE)
--- NOTE | 2017-10-07 07:47 | CP.PCM.PN ---
Subjective - Date & Time of Evaluation Date of Evaluation: 10/07/17 Time of Evaluation: 07:44 - Subjective Subjective: F/u GI bleed No further bleeding. Became confusded last nite. Denies RB, melena, fever, chills SZ, LOC, hematemesis, cough + tremor Objective - Vital Signs/Intake and Output Vital Signs (last 24 hours): Temp Pulse Resp BP Pulse Ox 98.5 F 61 18 129/76 97 10/07/17 04:00 10/07/17 07:00 10/07/17 07:00 10/07/17 06:28 10/07/17 07:00 Intake and Output: 10/07/17 10/07/17 06:59 18:59 Intake Total 1264 38 Balance 1264 38 - Medications Medications: Current Medications Pantoprazole Sodium 80 mg/ (Sodium Chloride) 100 mls @ 10 mls/hr IV .Q10H NICHOLE PRN Reason: 8 MG/HR Last Admin: 10/07/17 05:20 Dose: Not Given Octreotide Acetate 1,250 mcg/ (Sodium Chloride) 252.5 mls @ 10.1 mls/hr IV .Q24H NICHOLE; 50 MCG/HR PRN Reason: Protocol Last Admin: 10/06/17 16:01 Dose: 10.1 mls/hr Folic Acid 1 mg/ Thiamine HCl 100 mg/ Multivitamins/Vitamin C 10 ml/ Dextrose 1 ,011.2 mls @ 75 mls/hr IV Q24H NICHOLE Last Admin: 10/06/17 16:00 Dose: 75 mls/hr Dexmedetomidine HCl 200 mcg/ (Sodium Chloride) 50 mls @ 3.6 mls/hr IV TITR PRN ; Protocol; 0.2 MCG/KG/HR PRN Reason: Agitation Last Admin: 10/07/17 05:43 Dose: 1 mcg/kg/hr, 18.03 mls/hr Lorazepam (Ativan) 1 mg IVP Q6H PRN PRN Reason: Anxiety Last Admin: 10/06/17 23:08 Dose: 1 mg Pneumococcal Polyvalent Vaccine (Pneumovax 23 Vaccine) 0.5 ml IM .ONCE ONE Stop: 10/08/17 10:01 - Labs Labs: 10/07/17 05:57 10/07/17 05:57 PT 16.0 SECONDS (9.7-12.2) H 08/10/18 05:57 INR 1.5 10/07/17 05:57 APTT 31 SECONDS (21-34) 10/07/17 05:57 - Respiratory Exam Respiratory Exam: Clear to Ausculation Bilateral - Cardiovascular Exam Cardiovascular Exam: Tachycardia - GI/Abdominal Exam GI & Abdominal Exam: Soft, Normal Bowel Sounds. absent: Guarding, Tenderness, Mass Assessment and Plan (1) GI bleed Assessment & Plan: esoph varices- banded. P taper octrotide drip: 40 mcg/hr today. 25 mcg/hr tuesday protonix 40 mg IV q12h follow CBC, labs ANtibiotics: cefizox or cipro lactulose- p.o. or enema Status: Acute (2) Cirrhosis Assessment & Plan: Seen on CT, and as per varices Status: Acute (3) Alcohol abuse Status: Acute (4) Anemia Status: Acute (5) Electrolyte abnormality Status: Acute (6) Confusion Assessment & Plan: mild to mod elevated NH3- consider hep enceph. P Monitor NH3. Lactulose 30 cc po q 8h or q 6 hrs. Give per rectum enema if not taking p.o. TRy to avoid NG tube due to esoph varices. Consider other causes for neuro status: ETOH, DT, withdrawal Status: Acute
--- NOTE | 2017-10-07 09:58 | CP.CCUPN ---
<Rich Vásquez - Last Filed: 10/07/17 12:27> CCU Subjective - Physician Review Subjective (Free Text): Rich Vásquez DO PGY-1, progress note for Dr. Chris Díaz Pt seen and examined at bedside. Pt is unable to answer questions appropriately due to a combination of sedation and ams. Overnight, pt noted to be agitated and requesting to go home. Pt was not making sense and he received a total of Lorazepam 6 mg IVP, without adequate sedation. A dexmedetomidine gtt was started for sedation. Gtt was stopped this morning to oral medications. One brown bowel movement overnight. No hematemesis, melena, hematochezia. A 12-point ROS was unobtainable due to AMS. CCU Objective - Vital Signs / Intake & Output Vital Signs (Last 4 hours): Vital Signs Temp Pulse Resp BP Pulse Ox 10/07/17 08:00 98.2 F 100 10/07/17 07:00 61 18 97 10/07/17 06:28 61 14 129/76 100 10/07/17 06:00 63 13 100 Intake and Output (Last 8hrs): Intake & Output 10/06/17 10/07/17 10/07/17 22:59 06:59 14:59 Intake Total 760 884 108 Output Total 750 Balance 10 884 108 Weight 71.849 kg Intake: IV 100 70 Intake, IV Amount 760 784 38 L FA 600 525 Left Forearm 80 80 10 Left Hand 99 18 Left arm 50 10 Right Antecubital 10 30 Right Wrist 70 Output: Urine 750 Urine, Voided 750 Other: # Bowel Movements 1 1 - Physical Exam Physical Exam Limitations: Positive for: Altered Mental Status Head: Positive for: Atraumatic, Normocephalic Pupils: Positive for: PERRL Extroacular Muscles: Positive for: EOMI Conjunctiva: Positive for: Normal Mouth: Positive for: Moist Mucous Membranes Neck: Positive for: Normal Range of Motion Respiratory/Chest: Positive for: Clear to Auscultation, Good Air Exchange. Negative for: Respiratory Distress, Accessory Muscle Use Cardiovascular: Positive for: Regular Rate and Rhythm, Normal S1, S2 Abdomen: Positive for: Normal Bowel Sounds. Negative for: Tenderness, Distention Upper Extremity: Positive for: Normal Inspection Lower Extremity: Positive for: Normal Inspection Neurological: Positive for: GCS=15 Skin: Positive for: Warm, Dry, Normal Color, Other ((+)scattered, healing, nontender ecchymoses) Psychiatric: Positive for: Lethargic (but arousable). Negative for: Hallucinations (denies auditory or visual hallucinations) - Medications Active Medications: Active Medications Generic Name Dose Route Start Last Admin Trade Name Freq PRN Reason Stop Dose Admin Folic Acid 1 mg/ Thiamine HCl 1,011.2 mls @ 75 mls/hr 10/05/17 14:45 16:00 100 mg/ Multivitamins/Vitamin IV 75 mls/hr C 10 ml/ Dextrose Q24H NICHOLE Administration Dexmedetomidine HCl 200 mcg/ 50 mls @ 3.6 mls/hr 10/07/17 02:17 10/07/17 09: 18 Sodium Chloride IV 1 mcg/kg/hr TITR PRN 18.03 mls/hr Agitation Titration Protocol 0.2 MCG/KG/HR Octreotide Acetate 1,250 mcg/ 252.5 mls @ 5.05 mls/hr 10/07/17 07:47 08:14 Sodium Chloride IV Not Given .Q24H NICHOLE Protocol 25 MCG/HR Folic Acid 1 mg/ Thiamine HCl 1,011.2 mls @ 42 mls/hr 10/07/17 09:30 100 mg/ Multivitamins/Vitamin IV C 10 ml/ Dextrose .Q24H NICHOLE Potassium Chloride 10 meq in 100 mls @ 100 mls/hr 10/07/17 10:00 10/07/17 09: 56 Potassium Chloride 10 Meq/100 Ml IVPB 10/07/17 13:59 100 mls/hr Q1H NICHOLE Administration Lactulose 20 gm 10/07/17 07:43 Enulose PO Q8H PRN Constipation Lactulose 200 gm 10/07/17 09:21 [place] Q8H PRN Constipation Lorazepam 1 mg 10/05/17 12:31 10/07/17 08:06 Ativan IVP 1 mg Q6H PRN Administration Anxiety Pantoprazole Sodium 40 mg 10/07/17 08:00 10/07/17 08:17 Protonix Inj IVP 40 mg Q12H NICHOLE Administration Pneumococcal Polyvalent Vaccine 0.5 ml 10/08/17 10:00 Pneumovax 23 Vaccine IM 10/08/17 10:01 .ONCE ONE - Patient Studies Lab Studies: Microbiology Studies 10/06/17 05:43 Blood Culture - Preliminary Blood NO GROWTH AFTER 24 HOURS 10/06/17 05:43 Blood Culture - Preliminary Blood NO GROWTH AFTER 24 HOURS 10/05/17 14:24 MRSA Culture (Admit) - Final Naris MRSA NOT DETECTED 10/05/17 21:24 Urine Culture - Final Urine,Clean Catch <10,000 CFU/ML. MULTIPLE SPECIES. PROBABLE CONTAMINATION. Lab Studies 10/07/17 10/07/17 10/07/17 Range/Units 05:57 05:57 05:57 WBC (4.8-10.8) K/uL RBC (4.40-5.90) Mil/uL Hgb (12.0-18.0) g/dL Hct (35.0-51.0) % MCV (80.0-94.0) fL MCH (27.0-31.0) pg MCHC (33.0-37.0) g/dL RDW (11.5-14.5) % Plt Count (130-400) K/uL MPV (7.2-11.7) fL Neut % (Auto) (50.0-75.0) % Lymph % (Auto) (20.0-40.0) % [place] % (Auto) (0.0-10.0) % Eos % (Auto) (0.0-4.0) % Baso % (Auto) (0.0-2.0) % Neut # (Auto) (1.8-7.0) K/uL Lymph # (Auto) (1.0-4.3) K/uL Bull[place] # (Auto) (0.0-0.8) K/uL Eos # (Auto) (0.0-0.7) K/uL Baso # (Auto) (0.0-0.2) K/uL PT (9.7-12.2) SECONDS INR APTT (21-34) SECONDS Sodium 137 (132-148) mmol/L Potassium 3.3 L (3.6-5.2) mmol/L Chloride 107 (98-107) mmol/L Carbon Dioxide 21 L (22-30) mmol/L Anion Gap 13 (10-20) BUN 14 (9-20) mg/dL Creatinine 0.7 L (0.8-1.5) mg/dL Est GFR ( Amer) > 60 Est GFR (Non-Af Amer) > 60 Random Glucose 125 H (75-110) mg/dL Calcium 7.1 L (8.6-10.4) mg/dl Phosphorus 2.9 (2.5-4.5) mg/dL Magnesium 2.1 (1.6-2.3) mg/dL Total Bilirubin 4.8 H (0.2-1.3) mg/dL AST 121 H (17-59) U/L ALT 52 (21-72) U/L Alkaline Phosphatase 69 (38-126) U/L Ammonia 85 H (9-33) umol/L Total Protein 5.7 L (6.3-8.3) g/dL Albumin 2.5 L (3.5-5.0) g/dL Globulin 3.2 (2.2-3.9) gm/dL Albumin/Globulin Ratio 0.8 L (1.0-2.1) Hepatitis A IgM Ab (NEGATIVE) Hep Bs Antigen (NEGATIVE) Hep B Core IgM Ab (NEGATIVE) Hepatitis C Antibody (NEGATIVE) HIV 1&2 Antibody Screen Negative (NEGATIVE) 10/07/17 10/07/17 10/07/17 Range/Units 05:57 05:57 05:57 WBC 3.8 L (4.8-10.8) K/uL RBC 3.11 L (4.40-5.90) Mil/uL Hgb 7.7 L (12.0-18.0) g/dL Hct 23.9 L (35.0-51.0) % MCV 77.0 L (80.0-94.0) fL MCH 24.9 L (27.0-31.0) pg MCHC 32.3 L (33.0-37.0) g/dL RDW 21.0 H (11.5-14.5) % Plt Count 61 L (130-400) K/uL MPV 8.9 (7.2-11.7) fL Neut % (Auto) (50.0-75.0) % Lymph % (Auto) (20.0-40.0) % [place] % (Auto) (0.0-10.0) % Eos % (Auto) (0.0-4.0) % Baso % (Auto) (0.0-2.0) % Neut # (Auto) (1.8-7.0) K/uL Lymph # (Auto) (1.0-4.3) K/uL Bull[place] # (Auto) (0.0-0.8) K/uL Eos # (Auto) (0.0-0.7) K/uL Baso # (Auto) (0.0-0.2) K/uL PT 16.0 H (9.7-12.2) SECONDS INR 1.5 APTT 31 (21-34) SECONDS Sodium (132-148) mmol/L Potassium (3.6-5.2) mmol/L Chloride (98-107) mmol/L Carbon Dioxide (22-30) mmol/L Anion Gap (10-20) BUN (9-20) mg/dL Creatinine (0.8-1.5) mg/dL Est GFR ( Amer) Est GFR (Non-Af Amer) Random Glucose (75-110) mg/dL Calcium (8.6-10.4) mg/dl Phosphorus (2.5-4.5) mg/dL Magnesium (1.6-2.3) mg/dL Total Bilirubin (0.2-1.3) mg/dL AST (17-59) U/L ALT (21-72) U/L Alkaline Phosphatase (38-126) U/L Ammonia (9-33) umol/L Total Protein (6.3-8.3) g/dL Albumin (3.5-5.0) g/dL Globulin (2.2-3.9) gm/dL Albumin/Globulin Ratio (1.0-2.1) Hepatitis A IgM Ab Negative (NEGATIVE) Hep Bs Antigen Negative (NEGATIVE) Hep B Core IgM Ab Negative (NEGATIVE) Hepatitis C Antibody Negative (NEGATIVE) HIV 1&2 Antibody Screen (NEGATIVE) 10/06/17 10/06/17 10/06/17 Range/Units 13:44 12:00 12:00 WBC 4.7 L (4.8-10.8) K/uL RBC 3.12 L (4.40-5.90) Mil/uL Hgb 7.9 L (12.0-18.0) g/dL Hct 23.8 L (35.0-51.0) % MCV 76.2 L (80.0-94.0) fL MCH 25.2 L (27.0-31.0) pg MCHC 33.0 (33.0-37.0) g/dL RDW 20.5 H (11.5-14.5) % Plt Count 54 L (130-400) K/uL MPV 9.1 (7.2-11.7) fL Neut % (Auto) 73.8 (50.0-75.0) % Lymph % (Auto) 12.3 L (20.0-40.0) % [place] % (Auto) 11.7 H (0.0-10.0) % Eos % (Auto) 0.7 (0.0-4.0) % Baso % (Auto) 1.5 (0.0-2.0) % Neut # (Auto) 3.5 (1.8-7.0) K/uL Lymph # (Auto) 0.6 L (1.0-4.3) K/uL Bull[place] # (Auto) 0.5 (0.0-0.8) K/uL Eos # (Auto) 0.0 (0.0-0.7) K/uL Baso # (Auto) 0.1 (0.0-0.2) K/uL PT 15.6 H (9.7-12.2) SECONDS INR 1.4 APTT (21-34) SECONDS Sodium (132-148) mmol/L Potassium (3.6-5.2) mmol/L Chloride (98-107) mmol/L Carbon Dioxide (22-30) mmol/L Anion Gap (10-20) BUN (9-20) mg/dL Creatinine (0.8-1.5) mg/dL Est GFR ( Amer) Est GFR (Non-Af Amer) Random Glucose (75-110) mg/dL Calcium (8.6-10.4) mg/dl Phosphorus (2.5-4.5) mg/dL Magnesium (1.6-2.3) mg/dL Total Bilirubin (0.2-1.3) mg/dL AST (17-59) U/L ALT (21-72) U/L Alkaline Phosphatase (38-126) U/L Ammonia 74 H D (9-33) umol/L Total Protein (6.3-8.3) g/dL Albumin (3.5-5.0) g/dL Globulin (2.2-3.9) gm/dL Albumin/Globulin Ratio (1.0-2.1) Hepatitis A IgM Ab (NEGATIVE) Hep Bs Antigen (NEGATIVE) Hep B Core IgM Ab (NEGATIVE) Hepatitis C Antibody (NEGATIVE) HIV 1&2 Antibody Screen (NEGATIVE) Laboratory Results - last 24 hr 10/06/17 10/06/17 10/06/17 12:00 12:00 13:44 WBC 4.7 L RBC 3.12 L Hgb 7.9 L Hct 23.8 L MCV 76.2 L MCH 25.2 L MCHC 33.0 RDW 20.5 H Plt Count 54 L MPV 9.1 Neut % (Auto) 73.8 Lymph % (Auto) 12.3 L [place] % (Auto) 11.7 H Eos % (Auto) 0.7 Baso % (Auto) 1.5 Neut # (Auto) 3.5 Lymph # (Auto) 0.6 L [place] # (Auto) 0.5 Eos # (Auto) 0.0 Baso # (Auto) 0.1 PT 15.6 H INR 1.4 APTT Sodium Potassium Chloride Carbon Dioxide Anion Gap BUN Creatinine Est GFR ( Amer) Est GFR (Non-Af Amer) Random Glucose Calcium Phosphorus Magnesium Total Bilirubin AST ALT Alkaline Phosphatase Ammonia 74 H D Total Protein Albumin Globulin Albumin/Globulin Ratio Hepatitis A IgM Ab Hep Bs Antigen Hep B Core IgM Ab Hepatitis C Antibody HIV 1&2 Antibody Screen 10/07/17 10/07/17 10/07/17 05:57 05:57 05:57 WBC 3.8 L RBC 3.11 L Hgb 7.7 L Hct 23.9 L MCV 77.0 L MCH 24.9 L MCHC 32.3 L RDW 21.0 H Plt Count 61 L MPV 8.9 Neut % (Auto) Lymph % (Auto) Bull[place] % (Auto) Eos % (Auto) Baso % (Auto) Neut # (Auto) Lymph # (Auto) Bull[place] # (Auto) Eos # (Auto) Baso # (Auto) PT 16.0 H INR 1.5 APTT 31 Sodium Potassium Chloride Carbon Dioxide Anion Gap BUN Creatinine Est GFR ( Amer) Est GFR (Non-Af Amer) Random Glucose Calcium Phosphorus Magnesium Total Bilirubin AST ALT Alkaline Phosphatase Ammonia Total Protein Albumin Globulin Albumin/Globulin Ratio Hepatitis A IgM Ab Negative Hep Bs Antigen Negative Hep B Core IgM Ab Negative Hepatitis C Antibody Negative HIV 1&2 Antibody Screen 10/07/17 10/07/17 10/07/17 05:57 05:57 05:57 WBC RBC Hgb Hct MCV MCH MCHC RDW Plt Count MPV Neut % (Auto) Lymph % (Auto) [place] % (Auto) Eos % (Auto) Baso % (Auto) Neut # (Auto) Lymph # (Auto) [place] # (Auto) Eos # (Auto) Baso # (Auto) PT INR APTT Sodium 137 Potassium 3.3 L Chloride 107 Carbon Dioxide 21 L Anion Gap 13 BUN 14 Creatinine 0.7 L Est GFR ( Amer) > 60 Est GFR (Non-Af Amer) > 60 Random Glucose 125 H Calcium 7.1 L Phosphorus 2.9 Magnesium 2.1 Total Bilirubin 4.8 H AST 121 H ALT 52 Alkaline Phosphatase 69 Ammonia 85 H Total Protein 5.7 L Albumin 2.5 L Globulin 3.2 Albumin/Globulin Ratio 0.8 L Hepatitis A IgM Ab Hep Bs Antigen Hep B Core IgM Ab Hepatitis C Antibody HIV 1&2 Antibody Screen Negative Fingerstick Blood Sugar Results: 133 Review of Systems - Review of Systems All systems: reviewed and no additional remarkable complaints except (as per HPI ) Critical Care Progress Note - Prophylaxis GI Prophylaxis GI: PPI - Prophylaxis DVT Prophylaxis DVT: SCDs - Nutrition Nutrition: Nutrition Category Date Time Status NPO Diet [DIET] Diets 10/06/17 Breakfast Active Assessment/Plan - Assessment and Plan (Free Text) Assessment: This is a 36 year old male without significant PMhx who presented to the ED via ambulance with complaints of weakness and dizziness for the past month, worsening over the past 5 days. He endorses a history of dark tarry stools and vomiting containing dark blood. In the ED, pt was noted to be severely anemic ( hgb 3.3) with thrombocytopenia (48). ICU was consulted due to severe anemia with thrombocytopenia. Pt is s/p transfusion of 5 units pRBCs, with adequate response. Pt is s/p endoscopy, where esophageal varices were banded. 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 Ativan unsuccessful in sedation, started on precedex gtt. Ammonia is uptrending. Precedex discontinued for administration of medications for treatement of suspected hepatic encephalopathy. Continue to monitor in the ICU. Neuro: - monitor for mental status changes - Pt is AAOx3 at baseline - serum alcohol<10 - ammonia level is uptrending, currently 85, likely due to hepatic encephalopathy - f/u ammonia level - librium for potential alcohol withdrawal - ativan prn agitation Cardio: - pt is hemodynamically stable - maintain MAP>65mmHg - Echocardiogram prelim shows normal LVEF - f/u official echo reading Pulm: - spo2 96% on RA - maintain spo2>92% - NC prn - CXR (10/05) shows no active pulmonary disease GI: - abdominal/pelvic CT (10/05) with IV contrast showed hepatic cirrhosis. Retroperitoneal varices in the left upper abdomen. No definite esophageal varices. No ascites. Diffuse nonspecific thickening of the gallbladder wall, possibly related to hypoalbuminemia associated with cirrhosis. Patent portal vein. - endoscopy showed grade II esophageal varices. Incompletely eradicated, banded. Duodenitis. - ammonia is uptrending (85), likely due to hepatic encephalopathy - lactulose oral with goal of 3 bowel movements; will monitor - rifaximin 550 po bid - continue octeotride gtt as per GI - puree hhd - protonix for gi ppx - zofran prn nausea - stable transaminitis consistent with alcoholic hepatitis Heme: - chronic microcytic anemia, s/p 5 units pRBCs (10/05) with appropriate response - H/h is 7.7/ 23.9 - PTT/INR is wnl, PT is slightly elevated - heparin for vte ppx contraindicated at this time due to risk of bleeding Renal: - BUN/cr is wnl - continue to replete electrolytes as needed - continue banana bag Endo: - maintain euglycemia - accucheck ACHS PPX: protonix gtt for pud; scds for vte ppx Dispo: continue to monitor in ICU Case was reviewed and discussed with attending physician, Dr. Dangelo Díaz <Ge Díaz - Last Filed: 10/07/17 18:05> CCU Objective - Vital Signs / Intake & Output Vital Signs (Last 4 hours): Vital Signs Temp Pulse Resp BP Pulse Ox 10/07/17 16:00 98.2 F 64 14 100 10/07/17 15:11 58 L 13 100/57 L 99 10/07/17 15:00 58 L 13 100 10/07/17 14:11 75 14 112/67 99 Intake and Output (Last 8hrs): Intake & Output 10/07/17 10/07/17 10/07/17 06:59 14:59 22:59 Intake Total 884 763 194 Balance 884 763 194 Weight 158 lb 6.4 oz Intake: IV 100 100 Intake, IV Amount 784 503 194 L FA 525 Left Forearm 80 354 184 Left Hand 99 99 Left arm 50 50 10 Right Antecubital 30 Oral 160 Other: # Bowel Movements 1 1 - Medications Active Medications: Active Medications Generic Name Dose Route Start Last Admin Trade Name Freq PRN Reason Stop Dose Admin Chlordiazepoxide 75 mg 10/07/17 18:00 10/07/17 17:23 Librium PO 75 mg Q6 NICHOLE Administration Dexmedetomidine HCl 200 mcg/ 50 mls @ 3.6 mls/hr 10/07/17 02:17 10/07/17 11: 57 Sodium Chloride IV Infused TITR PRN Titration Agitation Protocol 0.2 MCG/KG/HR Octreotide Acetate 1,250 mcg/ 252.5 mls @ 5.05 mls/hr 10/07/17 07:47 08:14 Sodium Chloride IV Not Given .Q24H NICHOLE Protocol 25 MCG/HR Folic Acid 1 mg/ Thiamine HCl 1,011.2 mls @ 42 mls/hr 10/07/17 10:00 12:02 100 mg/ Multivitamins/Vitamin IV 42 mls/hr C 10 ml/ Dextrose DAILY NICHOLE Administration Lactulose 20 gm 10/07/17 07:43 10/07/17 11:20 Enulose PO 20 gm Q8H PRN Administration Constipation Lactulose 200 gm 10/07/17 10:00 [place] TN Q8H PRN constipation Lorazepam 1 mg 10/05/17 12:31 10/07/17 08:06 Ativan IVP 1 mg Q6H PRN Administration Anxiety Pantoprazole Sodium 40 mg 10/07/17 08:00 10/07/17 08:17 Protonix Inj IVP 40 mg Q12H NICHOLE Administration Pneumococcal Polyvalent Vaccine 0.5 ml 10/08/17 10:00 Pneumovax 23 Vaccine IM 10/08/17 10:01 .ONCE ONE Rifaximin 550 mg 10/07/17 18:00 10/07/17 17:21 Xifaxan PO 550 mg BID NICHOLE Administration Protocol - Patient Studies Lab Studies: Microbiology Studies 10/06/17 05:43 Blood Culture - Preliminary Blood NO GROWTH AFTER 24 HOURS 10/06/17 05:43 Blood Culture - Preliminary Blood NO GROWTH AFTER 24 HOURS 10/05/17 14:24 MRSA Culture (Admit) - Final Naris MRSA NOT DETECTED 10/05/17 21:24 Urine Culture - Final Urine,Clean Catch <10,000 CFU/ML. MULTIPLE SPECIES. PROBABLE CONTAMINATION. Lab Studies 10/07/17 10/07/17 10/07/17 Range/Units 05:57 05:57 05:57 WBC (4.8-10.8) K/uL RBC (4.40-5.90) Mil/uL Hgb (12.0-18.0) g/dL Hct (35.0-51.0) % MCV (80.0-94.0) fL MCH (27.0-31.0) pg MCHC (33.0-37.0) g/dL RDW (11.5-14.5) % Plt Count (130-400) K/uL MPV (7.2-11.7) fL PT (9.7-12.2) SECONDS INR APTT (21-34) SECONDS Sodium 137 (132-148) mmol/L Potassium 3.3 L (3.6-5.2) mmol/L Chloride 107 (98-107) mmol/L Carbon Dioxide 21 L (22-30) mmol/L Anion Gap 13 (10-20) BUN 14 (9-20) mg/dL Creatinine 0.7 L (0.8-1.5) mg/dL Est GFR ( Amer) > 60 Est GFR (Non-Af Amer) > 60 Random Glucose 125 H (75-110) mg/dL Calcium 7.1 L (8.6-10.4) mg/dl Phosphorus 2.9 (2.5-4.5) mg/dL Magnesium 2.1 (1.6-2.3) mg/dL Total Bilirubin 4.8 H (0.2-1.3) mg/dL AST 121 H (17-59) U/L ALT 52 (21-72) U/L Alkaline Phosphatase 69 (38-126) U/L Ammonia 85 H (9-33) umol/L Total Protein 5.7 L (6.3-8.3) g/dL Albumin 2.5 L (3.5-5.0) g/dL Globulin 3.2 (2.2-3.9) gm/dL Albumin/Globulin Ratio 0.8 L (1.0-2.1) Methylmalonic Acid (87-318) nmol/L Hepatitis A IgM Ab (NEGATIVE) Hep Bs Antigen (NEGATIVE) Hep B Core IgM Ab (NEGATIVE) Hepatitis C Antibody (NEGATIVE) HIV 1&2 Antibody Screen Negative (NEGATIVE) 10/07/17 10/07/17 10/07/17 Range/Units 05:57 05:57 05:57 WBC 3.8 L (4.8-10.8) K/uL RBC 3.11 L (4.40-5.90) Mil/uL Hgb 7.7 L (12.0-18.0) g/dL Hct 23.9 L (35.0-51.0) % MCV 77.0 L (80.0-94.0) fL MCH 24.9 L (27.0-31.0) pg MCHC 32.3 L (33.0-37.0) g/dL RDW 21.0 H (11.5-14.5) % Plt Count 61 L (130-400) K/uL MPV 8.9 (7.2-11.7) fL PT 16.0 H (9.7-12.2) SECONDS INR 1.5 APTT 31 (21-34) SECONDS Sodium (132-148) mmol/L Potassium (3.6-5.2) mmol/L Chloride (98-107) mmol/L Carbon Dioxide (22-30) mmol/L Anion Gap (10-20) BUN (9-20) mg/dL Creatinine (0.8-1.5) mg/dL Est GFR ( Amer) Est GFR (Non-Af Amer) Random Glucose (75-110) mg/dL Calcium (8.6-10.4) mg/dl Phosphorus (2.5-4.5) mg/dL Magnesium (1.6-2.3) mg/dL Total Bilirubin (0.2-1.3) mg/dL AST (17-59) U/L ALT (21-72) U/L Alkaline Phosphatase (38-126) U/L Ammonia (9-33) umol/L Total Protein (6.3-8.3) g/dL Albumin (3.5-5.0) g/dL Globulin (2.2-3.9) gm/dL Albumin/Globulin Ratio (1.0-2.1) Methylmalonic Acid (87-318) nmol/L Hepatitis A IgM Ab Negative (NEGATIVE) Hep Bs Antigen Negative (NEGATIVE) Hep B Core IgM Ab Negative (NEGATIVE) Hepatitis C Antibody Negative (NEGATIVE) HIV 1&2 Antibody Screen (NEGATIVE) 10/05/17 Range/Units 14:48 WBC (4.8-10.8) K/uL RBC (4.40-5.90) Mil/uL Hgb (12.0-18.0) g/dL Hct (35.0-51.0) % MCV (80.0-94.0) fL MCH (27.0-31.0) pg MCHC (33.0-37.0) g/dL RDW (11.5-14.5) % Plt Count (130-400) K/uL MPV (7.2-11.7) fL PT (9.7-12.2) SECONDS INR APTT (21-34) SECONDS Sodium (132-148) mmol/L Potassium (3.6-5.2) mmol/L Chloride (98-107) mmol/L Carbon Dioxide (22-30) mmol/L Anion Gap (10-20) BUN (9-20) mg/dL Creatinine (0.8-1.5) mg/dL Est GFR ( Amer) Est GFR (Non-Af Amer) Random Glucose (75-110) mg/dL Calcium (8.6-10.4) mg/dl Phosphorus (2.5-4.5) mg/dL Magnesium (1.6-2.3) mg/dL Total Bilirubin (0.2-1.3) mg/dL AST (17-59) U/L ALT (21-72) U/L Alkaline Phosphatase (38-126) U/L Ammonia (9-33) umol/L Total Protein (6.3-8.3) g/dL Albumin (3.5-5.0) g/dL Globulin (2.2-3.9) gm/dL Albumin/Globulin Ratio (1.0-2.1) Methylmalonic Acid 161 (87-318) nmol/L Hepatitis A IgM Ab (NEGATIVE) Hep Bs Antigen (NEGATIVE) Hep B Core IgM Ab (NEGATIVE) Hepatitis C Antibody (NEGATIVE) HIV 1&2 Antibody Screen (NEGATIVE) Laboratory Results - last 24 hr 10/05/17 10/07/17 10/07/17 14:48 05:57 05:57 WBC 3.8 L RBC 3.11 L Hgb 7.7 L Hct 23.9 L MCV 77.0 L MCH 24.9 L MCHC 32.3 L RDW 21.0 H Plt Count 61 L MPV 8.9 PT 16.0 H INR 1.5 APTT 31 Sodium Potassium Chloride Carbon Dioxide Anion Gap BUN Creatinine Est GFR ( Amer) Est GFR (Non-Af Amer) Random Glucose Calcium Phosphorus Magnesium Total Bilirubin AST ALT Alkaline Phosphatase Ammonia Total Protein Albumin Globulin Albumin/Globulin Ratio Methylmalonic Acid 161 Hepatitis A IgM Ab Hep Bs Antigen Hep B Core IgM Ab Hepatitis C Antibody HIV 1&2 Antibody Screen 10/07/17 10/07/17 10/07/17 05:57 05:57 05:57 WBC RBC Hgb Hct MCV MCH MCHC RDW Plt Count MPV PT INR APTT Sodium Potassium Chloride Carbon Dioxide Anion Gap BUN Creatinine Est GFR ( Amer) Est GFR (Non-Af Amer) Random Glucose Calcium Phosphorus Magnesium Total Bilirubin AST ALT Alkaline Phosphatase Ammonia 85 H Total Protein Albumin Globulin Albumin/Globulin Ratio Methylmalonic Acid Hepatitis A IgM Ab Negative Hep Bs Antigen Negative Hep B Core IgM Ab Negative Hepatitis C Antibody Negative HIV 1&2 Antibody Screen Negative 10/07/17 05:57 WBC RBC Hgb Hct MCV MCH MCHC RDW Plt Count MPV PT INR APTT Sodium 137 Potassium 3.3 L Chloride 107 Carbon Dioxide 21 L Anion Gap 13 BUN 14 Creatinine 0.7 L Est GFR ( Amer) > 60 Est GFR (Non-Af Amer) > 60 Random Glucose 125 H Calcium 7.1 L Phosphorus 2.9 Magnesium 2.1 Total Bilirubin 4.8 H AST 121 H ALT 52 Alkaline Phosphatase 69 Ammonia Total Protein 5.7 L Albumin 2.5 L Globulin 3.2 Albumin/Globulin Ratio 0.8 L Methylmalonic Acid Hepatitis A IgM Ab Hep Bs Antigen Hep B Core IgM Ab Hepatitis C Antibody HIV 1&2 Antibody Screen Critical Care Progress Note - Nutrition Nutrition: Nutrition Category Date Time Status Heart Healthy Diet [DIET] Diets 10/07/17 Lunch Active Assessment/Plan - Assessment and Plan (Free Text) Assessment: PAtient seen and examined at bedside. Patient with h/o ETOH abuse, h/o liver failure with hepatic encephalopathy and h/o variceal bleeding develops DTs being controleld with IV precedex. -Continue IV protonix q12 = octrotide -avoid antiplatelets and anticoagulatns -change precedex to librium orally -start oral diet -check serial cbc -patient off precedex ggt today tolerating oral pureee diet. -patient at times agitated requiring 1:1 observation -continue to monitor - Date & Time Date: 10/07/17 Time: 18:04
[2017-10-07] MEDS ORDERED: Lactulose 10 gm/15 ml (Rectal Use) PR PRN (10:00)
[2017-10-07] MEDS ORDERED: Folic Acid 1 MG, Thiamine 100 MG, Multivitamin (MVI) 10 ML in Dextrose 5% In Water 1,00... IV SCH (10:00)
[2017-10-07 11:31] LABS: METHYLMALONIC ACID,SERUM 161 nmol/L (87-318)
--- NOTE | 2017-10-07 20:24 | CP.PCM.PN ---
Subjective - Date & Time of Evaluation Date of Evaluation: 10/07/17 Time of Evaluation: 18:30 - Subjective Subjective: Hospitalist Progress Note Patient was seen and examined at 6:30 PM 10/07/17 ICU Bed 7 36 year old male (PMHx of Alochol Abuse) who was admitted on 10/05/17 after he was discovered to have a very low hemoglobin with stool guaiac positive. He has since been transfused a total of 5 units of PRBC since his admission. 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 He is currently being monitored in the ICU. Currently upon FULL ROS: Patient is very lethargic and answers a few questions pertaining to person, place, and time which he was able to answer correctly Exam: General:NAD, Lethargic but following commands, Has arm protectors and hand mittens on (apparently was trying to pull his lines) HEENT: NCA, EOMI, PERRLA,, NO cervical/supraclavicular/submandibular lymphadenopathy, NO pharyngeal erythema/exudate, Nasal Turbinates are nonerythematous/nonedematous, Oral Mucosa is moist, NO thyromegaly Cardio: NS1 and NS2, NO M/R/G Resp: CTA B/L NO R/R/W GI: BSx4, Soft, NT, Central Obesity, NO guarding/rebound tenderness Ext: Pulses are strong and equal, Capillary Refill is 2 seconds, NO edema, Toes Bilaterally are normal color/warm, The arms/hands appear to be tremulous when I asked him to raise them Neuro: CN II through XII are grossly intact Assessment and Plan: 1). 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 Madsen 2). Alcohol Abuse States that he has 10 beers on Dyo-Eag-Cibh but suspect that this is more Extensive conversation 10/06/17 with patient (Yi translation being provided by ICU Resident Dr. Mily Koo) concerning the dangers that this was posing to his GI system and his overall health Patient will need to be provided with AA meeting information upon discharge On night of 10/06/17 started to become agitated, trying to get out of bed, and was noted to be tremulous likely secondary to alcohol withdrawl Librium 75 mg PO Q6H Ativan 1 mg IV Q6H PRN signs of withdrawl Bannana Bag 75 ml/hr IV 1x/day 3). Liver Cirrhosis As seen on CT Abdomen/Pelvis Alcohol cessation is needed Hepatitis Panel negative HIV 1&2 negative 4). Hypokalemia/Hypomagnesemia Being repleted 5). Metabolic Acidosis Likely secondary to the GI Bleed Resolved 6). Low Measured Calcium Low albumin likely contributing to this Continue to monitor 7). Elevated LFTs Secondary to the Alcohol abuse/Liver Cirrhosis Continue to monitor 8). Elevated Ammonia Level Lactulose 20 gm PO Q6H PRN Rifaximine 550 mg PO 2x/day Monitor ammonia level 9). Low Albumin Likely secondary to the Liver Cirrhosis 10. Tachycardia Likely secondary to the Anemia secondary to the GI Bleed secondary to the Esophageal Varices Improved as the anemia has improved 11). Prophylaxis NO anticoagulation due to the GI Bleed Protonix Drip NPO for now Bannana Bag once a day Blood Culture is negative to date Urine Culture showed < 10,000 CFU F/U 2D Echocardiogram report Disposition: Hgb/Hct will have to remain stable, he will have to tolerate diet, no longer withdrawing from alcohol, and will need to be cleared by GI prior to determining status as appropriate for discharge Bao Díaz D.O. Objective - Vital Signs/Intake and Output Vital Signs (last 24 hours): Temp Pulse Resp BP Pulse Ox 98.2 F 71 18 90/48 L 99 10/07/17 16:00 10/07/17 19:00 10/07/17 19:00 10/07/17 18:11 10/07/17 19:00 Intake and Output: 10/07/17 10/08/17 18:59 06:59 Intake Total 1451 47 Output Total 100 Balance 1351 47 - Medications Medications: Current Medications Chlordiazepoxide (Librium) 75 mg PO Q6 [facility] Last Admin: 10/07/17 17:23 Dose: 75 mg Dexmedetomidine HCl 200 mcg/ (Sodium Chloride) 50 mls @ 3.6 mls/hr IV TITR PRN ; Protocol; 0.2 MCG/KG/HR PRN Reason: Agitation Last Titration: 10/07/17 11:57 Dose: Infused Octreotide Acetate 1,250 mcg/ (Sodium Chloride) 252.5 mls @ 5.05 mls/hr IV .Q24H [facility]; 25 MCG/HR PRN Reason: Protocol Last Admin: 10/07/17 08:14 Dose: Not Given Folic Acid 1 mg/ Thiamine HCl 100 mg/ Multivitamins/Vitamin C 10 ml/ Dextrose 1 ,011.2 mls @ 42 mls/hr IV DAILY [facility] Last Admin: 10/07/17 12:02 Dose: 42 mls/hr Lactulose (Enulose) 20 gm PO Q8H PRN PRN Reason: Constipation Last Admin: 10/07/17 11:20 Dose: 20 gm Lactulose (Generlac) 200 gm [place] Q8H PRN PRN Reason: constipation Lorazepam (Ativan) 1 mg IVP Q6H PRN PRN Reason: Anxiety Last Admin: 10/07/17 08:06 Dose: 1 mg Pantoprazole Sodium (Protonix Inj) 40 mg IVP Q12H [facility] Last Admin: 10/07/17 19:59 Dose: 40 mg Pneumococcal Polyvalent Vaccine (Pneumovax 23 Vaccine) 0.5 ml IM .ONCE ONE Stop: 10/08/17 10:01 Rifaximin (Xifaxan) 550 mg PO BID [facility] PRN Reason: Protocol Last Admin: 10/07/17 17:21 Dose: 550 mg - Labs Labs: 10/07/17 05:57 10/07/17 05:57 PT 16.0 SECONDS (9.7-12.2) H 10/07/17 05:57 INR 1.5 10/07/17 05:57 APTT 31 SECONDS (21-34) 10/07/17 05:57
[2017-10-08 06:30] LABS: BASO # 0.1 K/uL (0.0-0.2); EOS # 0.1 K/uL (0.0-0.7); EOS % 2.5 % (0.0-4.0); HEMOGLOBIN 8.3 g/dL (12.0-18.0); LYMPH % 16.4 % (20.0-40.0); MEAN CELL VOLUME 77.3 fL (80.0-94.0); MEAN CORPUSCULAR HEMOGLOBIN 24.8 pg (27.0-31.0); MEAN PLATELET VOLUME 8.8 fL (7.2-11.7); MONO # 0.7 K/uL (0.0-0.8); MONO % 12.8 % (0.0-10.0); NEUT # 3.9 K/uL (1.8-7.0); NEUT % 67.3 % (50.0-75.0); NRBC % 0.2 % (0.0-2.0); RBC 3.36 Mil/uL (4.40-5.90); RED CELL DISTRIBUTION WIDTH 21.5 % (11.5-14.5); WHITE BLOOD COUNT 5.8 K/uL (4.8-10.8)
[2017-10-08 06:36] LABS: INR 1.4; PROTHROMBIN TIME 15.6 SECONDS (9.7-12.2)
[2017-10-08 06:42] LABS: ALB/GLOB RATIO 0.7 (1.0-2.1); ALBUMIN 2.5 g/dL (3.5-5.0); ALT/SGPT 59 U/L (21-72); AST/SGOT 117 U/L (17-59); BLOOD UREA NITROGEN 10 mg/dL (9-20); CALCIUM 7.5 mg/dl (8.6-10.4); GFR AFRICAN-AMERICAN > 60; GFR NON-AFRICAN AMERICAN > 60
[2017-10-08] MEDS ORDERED: Pneumococcal 23-Valent Vaccine IM ONE (10:00)
--- NOTE | 2017-10-08 12:21 | CP.PCM.PN ---
Subjective - Date & Time of Evaluation Date of Evaluation: 10/08/17 Time of Evaluation: 12:18 - Subjective Subjective: COVERING DR EMERY/PATSY No bleeding and less confused. Tolerating liquids. Objective - Vital Signs/Intake and Output Vital Signs (last 24 hours): Temp Pulse Resp BP Pulse Ox 98.8 F 90 28 H 135/75 100 10/08/17 04:00 10/08/17 11:00 10/08/17 11:00 10/08/17 10:11 10/08/17 11:00 Intake and Output: 10/08/17 10/08/17 06:59 18:59 Intake Total 1764 884 Output Total 3400 18576 Balance -3102 -80242 - Medications Medications: Current Medications Chlordiazepoxide (Librium) 75 mg PO Q6 [facility] Last Admin: 10/08/17 12:06 Dose: 75 mg Lactulose (Enulose) 20 gm PO Q8H PRN PRN Reason: Constipation Last Admin: 10/07/17 11:20 Dose: 20 gm Lorazepam (Ativan) 1 mg IVP Q6H PRN PRN Reason: Anxiety Last Admin: 10/08/17 01:00 Dose: 1 mg Nadolol (Corgard) 20 mg PO DAILY [facility] Pantoprazole Sodium (Protonix Inj) 40 mg IVP Q12H [facility] Last Admin: 10/08/17 08:09 Dose: 40 mg Rifaximin (Xifaxan) 550 mg PO BID [facility] PRN Reason: Protocol Last Admin: 10/08/17 11:00 Dose: 550 mg - Labs Labs: 10/08/17 06:21 10/08/17 06:17 PT 15.6 SECONDS (9.7-12.2) H 10/08/17 06:24 INR 1.4 10/08/17 06:24 APTT 29 SECONDS (21-34) 10/08/17 06:24 - Constitutional Appears: No Acute Distress - Head Exam Head Exam: ATRAUMATIC, NORMOCEPHALIC - Respiratory Exam Respiratory Exam: NORMAL BREATHING PATTERN - Cardiovascular Exam Cardiovascular Exam: REGULAR RHYTHM - GI/Abdominal Exam GI & Abdominal Exam: Soft, Normal Bowel Sounds. absent: Tenderness - Extremities Exam Extremities Exam: Normal Inspection - Neurological Exam Neurological Exam: Alert Additional comments: oriented to person, place - Psychiatric Exam Additional comments: confused Assessment and Plan (1) Esophageal varices Assessment & Plan: S/P variceal banding. Begin Nadolol for prophylaxis of rebleeding Advance diet to solid Status: Acute (2) Alcoholic cirrhosis Status: Chronic (3) Hepatic encephalopathy Assessment & Plan: Continue Lactulose and consider adding Rifaxamiin. NH3 now normal and may be due to acute bleed. 60g protein diet to begin. Status: Acute (4) Acute blood loss anemia Assessment & Plan: H/H stable Status: Acute
--- NOTE | 2017-10-08 13:00 | CP.PCM.PN ---
Subjective - Date & Time of Evaluation Date of Evaluation: 10/08/17 Time of Evaluation: 12:57 - Subjective Subjective: PAtient alert awake, no tremors, off precedex ggt, oob to chair, patient provided his 's number [phone]. Objective - Vital Signs/Intake and Output Vital Signs (last 24 hours): Temp Pulse Resp BP Pulse Ox 98.8 F 90 28 H 135/75 100 10/08/17 04:00 10/08/17 11:00 10/08/17 11:00 10/08/17 10:11 10/08/17 11:00 Intake and Output: 10/08/17 10/08/17 06:59 18:59 Intake Total 1764 1084 Output Total 3400 59476 Balance -4127 -52031 - Medications Medications: Current Medications Chlordiazepoxide (Librium) 75 mg PO Q6 [facility] Last Admin: 10/08/17 12:06 Dose: 75 mg Folic Acid (Folic Acid) 1 mg PO DAILY [facility] Lactulose (Enulose) 20 gm PO Q8H PRN PRN Reason: Constipation Last Admin: 10/07/17 11:20 Dose: 20 gm Lorazepam (Ativan) 1 mg IVP Q6H PRN PRN Reason: Anxiety Last Admin: 10/08/17 01:00 Dose: 1 mg Multivitamins/Vitamin C (Multi-Delyn Liquid) 5 ml PO DAILY [facility] Nadolol (Corgard) 20 mg PO DAILY [facility] Pantoprazole Sodium (Protonix Inj) 40 mg IVP Q12H [facility] Last Admin: 10/08/17 08:09 Dose: 40 mg Rifaximin (Xifaxan) 550 mg PO BID [facility] PRN Reason: Protocol Last Admin: 10/08/17 11:00 Dose: 550 mg Thiamine HCl (Vitamin B1 Tab) 100 mg PO DAILY [facility] - Labs Labs: 10/08/17 06:21 10/08/17 06:17 PT 15.6 SECONDS (9.7-12.2) H 10/08/17 06:24 INR 1.4 10/08/17 06:24 APTT 29 SECONDS (21-34) 10/08/17 06:24 - Head Exam Head Exam: ATRAUMATIC, NORMAL INSPECTION, NORMOCEPHALIC - Eye Exam Eye Exam: EOMI, Normal appearance Pupil Exam: PERRL - ENT Exam ENT Exam: Mucous Membranes Moist - Neck Exam Neck Exam: Full ROM - Respiratory Exam Respiratory Exam: Clear to Ausculation Bilateral, NORMAL BREATHING PATTERN - Cardiovascular Exam Cardiovascular Exam: REGULAR RHYTHM, +S1, +S2 - GI/Abdominal Exam GI & Abdominal Exam: Distended, Normal Bowel Sounds - Extremities Exam Extremities Exam: Normal Inspection Assessment and Plan - Assessment and Plan (Free Text) Assessment: -Dt: resolving and controlled with oral librium, off precedex ggt -Variceal bleeding: no active bleeding, off octreotide ggt, start non- cardioselective beta gutierrez + ppi -Hepatic encephalopathy: continue lectulose + refaxamin -oob to chair -Hemodynamic stable -continue to monitor -can be down graded to telemetry Patient strongly advised to stop drinknig ETOH.
[2017-10-08] MEDS: Multiple Vitamins Oral Solution PO SCH (13:24)
--- NOTE | 2017-10-08 18:54 | CP.PCM.PN ---
Subjective - Date & Time of Evaluation Date of Evaluation: 10/08/17 Time of Evaluation: 18:45 - Subjective Subjective: Hospitalist Progress Note Patient was seen and examined at 6:45 PM 10/08/17 ICU Bed 7 36 year old male (PMHx of Alochol Abuse) who was admitted on 10/05/17 after he was discovered to have a very low hemoglobin with stool guaiac positive. He has since been transfused a total of 5 units of PRBC since his admission. 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 He then started develop alcohol withdrawl. He is currently being monitored in the ICU. Currently upon FULL ROS: Patient is no longer lethargic at time of my exam He is answering questions, following my commands, is awake/alert/oriented to person/place/time Currently has NO complaints upon FULL ROS Exam: General:NAD, AAOX3, NO tremors noted HEENT: NCA, EOMI, PERRLA,, NO cervical/supraclavicular/submandibular lymphadenopathy, NO pharyngeal erythema/exudate, Nasal Turbinates are nonerythematous/nonedematous, Oral Mucosa is moist, NO thyromegaly Cardio: NS1 and NS2, NO M/R/G Resp: CTA B/L NO R/R/W GI: BSx4, Soft, NT, Central Obesity, NO guarding/rebound tenderness Ext: Pulses are strong and equal, Capillary Refill is 2 seconds, NO edema, Toes Bilaterally are normal color/warm, NO axterixis noted Neuro: CN II through XII are grossly intact Assessment and Plan: 1). 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 Madsen 2). Alcohol Abuse States that he has 10 beers on Hlo-Jgp-Braa but suspect that this is more Extensive conversation 10/06/17 with patient (Pashto translation being provided by ICU Resident Dr. Mily Koo) concerning the dangers that this was posing to his GI system and his overall health Patient will need to be provided with AA meeting information upon discharge On night of 10/06/17 started to become agitated, trying to get out of bed, and was noted to be tremulous likely secondary to alcohol withdrawl Librium 75 mg PO Q6H Ativan 1 mg IV Q6H PRN signs of withdrawl Bannana Bag 75 ml/hr IV 1x/day 3). Liver Cirrhosis As seen on CT Abdomen/Pelvis Alcohol cessation is needed Hepatitis Panel negative HIV 1&2 negative 4). Hypokalemia/Hypomagnesemia Being repleted 5). Metabolic Acidosis Likely secondary to the GI Bleed Resolved 6). Low Measured Calcium Low albumin likely contributing to this Continue to monitor 7). Elevated LFTs Secondary to the Alcohol abuse/Liver Cirrhosis Continue to monitor 8). Elevated Ammonia Level Lactulose 20 gm PO Q6H PRN Rifaximine 550 mg PO 2x/day Monitor ammonia level 9). Low Albumin Likely secondary to the Liver Cirrhosis 10. Tachycardia Likely secondary to the Anemia secondary to the GI Bleed secondary to the Esophageal Varices Improved as the anemia has improved 11). Prophylaxis NO anticoagulation due to the GI Bleed Protonix 40 mg IV Q12H Regular Diet Bannana Bag once a day Blood Culture is negative to date Urine Culture showed < 10,000 CFU F/U 2D Echocardiogram report Disposition: Hgb/Hct will have to remain stable, he will have to tolerate diet, no longer withdrawing from alcohol, and will need to be cleared by GI prior to determining status as appropriate for discharge Bao Díaz D.O. Objective - Vital Signs/Intake and Output Vital Signs (last 24 hours): Temp Pulse Resp BP Pulse Ox 98.3 F 70 21 113/60 97 10/08/17 16:00 10/08/17 16:00 10/08/17 16:00 10/08/17 16:00 10/08/17 14:11 Intake and Output: 10/08/17 10/08/17 06:59 18:59 Intake Total 1764 1214 Output Total 3400 62599 Balance -4172 -91274 - Medications Medications: Current Medications Chlordiazepoxide (Librium) 75 mg PO Q6 [facility] Last Admin: 10/08/17 17:37 Dose: 75 mg Folic Acid (Folic Acid) 1 mg PO DAILY [facility] Last Admin: 10/08/17 13:25 Dose: 1 mg Lactulose (Enulose) 20 gm PO Q8H PRN PRN Reason: Constipation Last Admin: 10/07/17 11:20 Dose: 20 gm Multivitamins/Vitamin C (Multi-Delyn Liquid) 5 ml PO DAILY [facility] Last Admin: 10/08/17 13:24 Dose: 5 ml Nadolol (Corgard) 20 mg PO DAILY [facility] Last Admin: 10/08/17 13:23 Dose: 20 mg Pantoprazole Sodium (Protonix Inj) 40 mg IVP Q12H [facility] Last Admin: 10/08/17 08:09 Dose: 40 mg Rifaximin (Xifaxan) 550 mg PO BID [facility] PRN Reason: Protocol Last Admin: 10/08/17 17:37 Dose: 550 mg Thiamine HCl (Vitamin B1 Tab) 100 mg PO DAILY [facility] Last Admin: 10/08/17 14:06 Dose: 100 mg - Labs Labs: 10/08/17 06:21 10/08/17 06:17 PT 15.6 SECONDS (9.7-12.2) H 10/08/17 06:24 INR 1.4 10/08/17 06:24 APTT 29 SECONDS (21-34) 10/08/17 06:24
[2017-10-09 06:45] LABS: INR 1.5; PROTHROMBIN TIME 16.6 SECONDS (9.7-12.2)
[2017-10-09 06:49] LABS: BASO # 0.1 K/uL (0.0-0.2); BASO % 1.7 % (0.0-2.0); EOS # 0.1 K/uL (0.0-0.7); EOS % 3.2 % (0.0-4.0); HEMOGLOBIN 7.9 g/dL (12.0-18.0); LYMPH # 0.9 K/uL (1.0-4.3); LYMPH % 18.3 % (20.0-40.0); MEAN CELL VOLUME 79.1 fL (80.0-94.0); MEAN CORPUSCULAR HEMOGLOBIN 25.1 pg (27.0-31.0); MEAN CORPUSCULAR HGB CONC 31.7 g/dL (33.0-37.0); MEAN PLATELET VOLUME 8.9 fL (7.2-11.7); MONO # 0.7 K/uL (0.0-0.8); MONO % 15.9 % (0.0-10.0); NEUT # 2.8 K/uL (1.8-7.0); NEUT % 60.9 % (50.0-75.0); NRBC % 0.2 % (0.0-2.0); RBC 3.14 Mil/uL (4.40-5.90); WHITE BLOOD COUNT 4.7 K/uL (4.8-10.8)
[2017-10-09 06:56] LABS: ALB/GLOB RATIO 0.8 (1.0-2.1); ALBUMIN 2.4 g/dL (3.5-5.0); ALT/SGPT 54 U/L (21-72); AST/SGOT 111 U/L (17-59); BLOOD UREA NITROGEN 10 mg/dL (9-20); CALCIUM 7.4 mg/dl (8.6-10.4); GFR AFRICAN-AMERICAN > 60; GFR NON-AFRICAN AMERICAN > 60
[2017-10-09] MEDS: Multiple Vitamins Oral Solution PO SCH (09:54)
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
[2017-10-09] MEDS ORDERED: Multivitamin (MVI) 10 ML, Thiamine 100 MG, Folic Acid 1 MG in Sodium Chloride 0.9% 1,00... IV ONE (12:00)
--- NOTE | 2017-10-09 13:19 | CP.PCM.PN ---
Subjective - Date & Time of Evaluation Date of Evaluation: 10/09/17 Time of Evaluation: 13:17 - Subjective Subjective: COVERING DR EMERY/PATSY Event of yesterday noted. Patient more sedate today. No bleeding. On diet. Objective - Vital Signs/Intake and Output Vital Signs (last 24 hours): Temp Pulse Resp BP Pulse Ox 98.8 F 65 20 119/62 98 10/09/17 04:00 10/09/17 12:00 10/09/17 12:00 10/09/17 12:00 10/09/17 08:00 Intake and Output: 10/09/17 10/09/17 06:59 18:59 Intake Total 250 530 Output Total 1250 1550 Balance -1000 -1020 - Medications Medications: Current Medications Chlordiazepoxide (Librium) 75 mg PO Q6 [facility] Stop: 10/09/17 18:00 Last Admin: 10/09/17 11:22 Dose: 75 mg Chlordiazepoxide (Librium) 50 mg PO Q6 [facility] PRN Reason: Taper Stop: 10/14/17 05:59 Folic Acid (Folic Acid) 1 mg PO DAILY [facility] Last Admin: 10/09/17 09:53 Dose: 1 mg Multivitamins/Vitamin C 10 ml/Thiamine HCl 100 mg/ Folic Acid 1 mg/ Sodium Chloride 1,011.2 mls @ 75 mls/hr IV .[id number] [facility] Stop: 10/10/17 01:28 Lactulose (Enulose) 20 gm PO Q8H PRN PRN Reason: Constipation Last Admin: 10/07/17 11:20 Dose: 20 gm Multivitamins/Vitamin C (Multi-Delyn Liquid) 5 ml PO DAILY [facility] Last Admin: 10/09/17 09:54 Dose: 5 ml Nadolol (Corgard) 20 mg PO DAILY [facility] Last Admin: 10/09/17 09:53 Dose: 20 mg Pantoprazole Sodium (Protonix Inj) 40 mg IVP Q12H [facility] Last Admin: 10/09/17 09:53 Dose: 40 mg Rifaximin (Xifaxan) 550 mg PO BID [facility] PRN Reason: Protocol Last Admin: 10/09/17 09:53 Dose: 550 mg Thiamine HCl (Vitamin B1 Tab) 100 mg PO DAILY [facility] Last Admin: 10/09/17 09:53 Dose: 100 mg - Labs Labs: 10/09/17 06:26 10/09/17 06:26 PT 16.6 SECONDS (9.7-12.2) H 10/09/17 06:00 INR 1.5 10/09/17 06:00 APTT 30 SECONDS (21-34) 10/09/17 06:00 - Respiratory Exam Respiratory Exam: NORMAL BREATHING PATTERN - Cardiovascular Exam Cardiovascular Exam: REGULAR RHYTHM - GI/Abdominal Exam GI & Abdominal Exam: Soft, Normal Bowel Sounds. absent: Tenderness - Extremities Exam Extremities Exam: Normal Inspection Assessment and Plan (1) Esophageal varices Assessment & Plan: Continue Nadolol as ordered for prophylaxis of rebleeding. Should have repeat EGD and banding done as outpatient until varices are obliterated. Will likely refer to GI clinic. Status: Acute (2) Alcoholic cirrhosis Status: Chronic (3) Hepatic encephalopathy Assessment & Plan: Encephalopathy and alcohol withdrawl noted. On medication per ICU team. Ammonia levels normal. Lactulose as needed for 2-3 stools per day. Acute encephalopathy likely precipitated by the bleeding event and blood in the bowel. Status: Acute (4) Acute blood loss anemia Status: Acute
--- NOTE | 2017-10-09 22:33 | CARD ---
APPROVED REPORT Date of service: 10/06/2017 EXAM: Two-dimensional and M-mode echocardiogram with Doppler and color Doppler. INDICATION Alcohol abuse RISK FACTORS Hypertension 2D DIMENSIONS IVSd1.2 (0.7-1.1cm)LVDd5.5 (3.9-5.9cm) PWd0.9 (0.7-1.1cm)LVDs3.8 (2.5-4.0cm) FS (%) 31.2 % M-Mode DIMENSIONS RVDd1.56 (2.1-3.2cm)Left Atrium (MM)4.36 (2.5-4.0cm) IVSd1.11 (0.7-1.1cm)Aortic Root2.94 (2.2-3.7cm) LVDd6.57 (4.0-5.6cm)Aortic Cusp Exc.2.06 (1.5-2.0cm) PWd0.94 (0.7-1.1cm)FS (%) 30 % LVDs4.59 (2.0-3.8cm) Aortic Valve AI P 1/2 [id number] Mitral Valve MV E Cvcykxcu736.1cm/sMV A Yhlflfkg933.6cm/sE/A ratio1.0 TDI E/Lateral E'0.0E/Medial E'0.0 Tricuspid Valve TR Peak [id number]/sTR Peak [id number] <Conclusion> Left ventricle: thickness: normal; size: normal; overall ejection fraction: 50%: diastolic filling pressures: normal Mitral valve: annulus: normal: leaflets: normal: excursion: normal; no significant trans-mitral gradient: no significant incompetence: left atrium: normal Aortic valve: leaflets: normal: excursion: normal; no significant trans-aortic gradient:tracesignificant incompetence: aortic root: normal Right sided Structures: Pulmonary valve: normal; no significant incompetence; Tricuspid valve: normal; no significant incompetence: Intra-cardiac hemodynamics: pulmonary systolic pressures:50mmHg; central venous pressures: normal No pericardial effusion
--- NOTE | 2017-10-10 00:02 | CARD ---
APPROVED REPORT Date of service: 10/05/2017 EKG Measurement Heart [id number] <Conclusion> Sinus tachycardia voltage criteria for LVH ST depression, consider subendocardial injury Prolonged QT Abnormal ECG
--- NOTE | 2017-10-10 00:14 | CARD ---
APPROVED REPORT Date of service: 10/05/2017 EKG Measurement Heart [id number] <Conclusion> Sinus tachycardia voltage criteria for LVH ST depression, consider subendocardial injury Nonspecific T wave abnormality Abnormal ECG
[2017-10-10 02:58] VITALS: RESP 20
[2017-10-10 07:59] LABS: BASO # 0.1 K/uL (0.0-0.2); BASO % 1.3 % (0.0-2.0); EOS # 0.1 K/uL (0.0-0.7); EOS % 2.9 % (0.0-4.0); HEMOGLOBIN 8.2 g/dL (12.0-18.0); INR 1.5; LYMPH # 1.1 K/uL (1.0-4.3); LYMPH % 22.6 % (20.0-40.0); MEAN CORPUSCULAR HGB CONC 31.7 g/dL (33.0-37.0); MONO # 0.7 K/uL (0.0-0.8); MONO % 15.4 % (0.0-10.0); NEUT # 2.8 K/uL (1.8-7.0); NEUT % 57.8 % (50.0-75.0); NRBC % 0.2 % (0.0-2.0); PROTHROMBIN TIME 16.4 SECONDS (9.7-12.2); RBC 3.29 Mil/uL (4.40-5.90); RED CELL DISTRIBUTION WIDTH 22.7 % (11.5-14.5); WHITE BLOOD COUNT 4.9 K/uL (4.8-10.8)
[2017-10-10 08:06] LABS: ALB/GLOB RATIO 0.8 (1.0-2.1); ALBUMIN 2.6 g/dL (3.5-5.0); ALT/SGPT 60 U/L (21-72); AST/SGOT 100 U/L (17-59); BLOOD UREA NITROGEN 9 mg/dL (9-20); CALCIUM 7.9 mg/dl (8.6-10.4); GFR AFRICAN-AMERICAN > 60; GFR NON-AFRICAN AMERICAN > 60
[2017-10-10] MEDS: Multiple Vitamins Oral Solution PO SCH (09:26)
--- NOTE | 2017-10-10 09:49 | CP.PCM.PN ---
<Brenda Servin - Last Filed: 10/10/17 16:36> Subjective - Date & Time of Evaluation Date of Evaluation: 10/10/17 Time of Evaluation: 09:40 - Subjective Subjective: PGY-1 Brenda Servin D.O. Medicine progress note for Dr. Singleton service: Patient is seen and examined this morning. He is calm and lying comfortably in bed. He is oriented to person and place "hospital". He answers random numbers when asked the date. He is able to follow simple commands. he denies pain. Objective - Vital Signs/Intake and Output Vital Signs (last 24 hours): Temp Pulse Resp BP Pulse Ox 98.1 F 70 20 128/73 95 10/10/17 00:00 10/10/17 00:00 10/10/17 00:00 10/10/17 00:00 10/10/17 00:00 Intake and Output: 10/10/17 10/10/17 06:59 18:59 Intake Total 615 Output Total 500 Balance 115 - Medications Medications: Current Medications Chlordiazepoxide (Librium) 50 mg PO Q6 [facility] PRN Reason: Taper Stop: 10/14/17 05:59 Last Admin: 10/10/17 05:18 Dose: 50 mg Folic Acid (Folic Acid) 1 mg PO DAILY [facility] Last Admin: 10/09/17 09:53 Dose: 1 mg Lactulose (Enulose) 20 gm PO Q8H PRN PRN Reason: Constipation Last Admin: 10/07/17 11:20 Dose: 20 gm Lorazepam (Ativan) 1 mg IVP Q6H PRN PRN Reason: Agitation Last Admin: 10/10/17 02:49 Dose: 1 mg Multivitamins/Vitamin C (Multi-Delyn Liquid) 5 ml PO DAILY [facility] Last Admin: 10/10/17 09:26 Dose: 5 ml Nadolol (Corgard) 20 mg PO DAILY [facility] Last Admin: 10/10/17 09:26 Dose: 20 mg Pantoprazole Sodium (Protonix Inj) 40 mg IVP Q12H [facility] Last Admin: 10/10/17 08:31 Dose: 40 mg Rifaximin (Xifaxan) 550 mg PO BID [facility] PRN Reason: Protocol Last Admin: 10/10/17 09:26 Dose: 550 mg Thiamine HCl (Vitamin B1 Tab) 100 mg PO DAILY [facility] Last Admin: 10/10/17 09:27 Dose: 100 mg - Labs Labs: 10/10/17 07:18 10/10/17 07:18 PT 16.4 SECONDS (9.7-12.2) H 10/10/17 07:18 INR 1.5 10/10/17 07:18 APTT 33 SECONDS (21-34) 10/10/17 07:18 - Constitutional Appears: Well, Non-toxic, No Acute Distress - Head Exam Head Exam: ATRAUMATIC, NORMAL INSPECTION, NORMOCEPHALIC - Eye Exam Eye Exam: EOMI, Scleral icterus - ENT Exam ENT Exam: Mucous Membranes Moist, Normal Exam - Neck Exam Neck Exam: Normal Inspection. absent: Lymphadenopathy - Respiratory Exam Respiratory Exam: Clear to Ausculation Bilateral, NORMAL BREATHING PATTERN - Cardiovascular Exam Cardiovascular Exam: REGULAR RHYTHM, +S1, +S2 - GI/Abdominal Exam GI & Abdominal Exam: Soft, Normal Bowel Sounds. absent: Tenderness - Rectal Exam Rectal Exam: Deferred - Extremities Exam Extremities Exam: Normal Inspection. absent: Pedal Edema - Back Exam Back Exam: NORMAL INSPECTION - Neurological Exam Neurological Exam: Alert, Awake Additional comments: oriented x2 (person, place "hospital") - Psychiatric Exam Psychiatric exam: Normal Affect, Normal Mood - Skin Skin Exam: Dry, Intact, Warm Additional comments: jaundice Assessment and Plan - Assessment and Plan (Free Text) Assessment: Patient is a 36 yo male with a history of HTN and alcohol use disorder who presented with dizziness, weakness, blurry vision, nausea, and vomiting. He was admitted to the ICU. He was found to have elevated ammonia and developed hepatic encephalopathy. He had grade 2 esophageal varices on EGD with 2 banded. Plan: Anemia Secondary to GI Bleed (Esophageal Varices), acute, stable- s/p 5u PRBC - EGD 10/06: Grade II Varices present in the lower 1/3 of the esophagus, 2 bands - Protonix 40 mg IV Q12H - NO Longer on Octreotide 25 mcg/hr IV - Nadolol 20 mg PO 1x/day - Rifaximin 550 mg PO 2x/day - GI consult (Dr. Madsen)- repeat EGD within 1 month as outpatient Alcohol use disorder - Alcohol cessation counseling - Patient will need to be provided with AA meeting information upon discharge - Librium 50 mg PO Q8H- continue to taper - Ativan 1 mg IV Q6H PRN for seizure activity - MV PO daily - Folate 1 mg PO daily - Thiamine 100 mg PO daily Liver Cirrhosis, chronic - CT Abdomen/Pelvis 10/05 - Alcohol cessation counseling - Hepatitis Panel negative - HIV 1&2 negative Elevated Ammonia Level, improved - Lactulose 20 gm PO Q6H PRN - Rifaximin 550 mg PO 2x/day Hypokalemia - CMP in AM - Replete as needed Low Measured Calcium- Low albumin likely contributing to this - CMP in AM Elevated LFTs, stable- 2/2 to the Alcohol abuse/Liver Cirrhosis - CMP in AM Low Albumin- likely secondary to the Liver Cirrhosis Metabolic Acidosis, resolved- likely secondary to the GI Bleed Tachycardia, improved- likely secondary to the Anemia secondary to the GI Bleed secondary to the Esophageal Varices - Echo 10/05: EF 50% PT consult- rec home OT consult IVF: not indicated VTE ppx: contraindicated (NO anticoagulation due to the GI Bleed/varices) GI ppx: Protonix 40 mg IV Q12H Diet: Regular- toelrating well Code status: full code <Veronica Rosa V - Last Filed: 10/11/17 00:45> Objective - Vital Signs/Intake and Output Vital Signs (last 24 hours): Temp Pulse Resp BP Pulse Ox 98.7 F 72 20 101/60 96 10/10/17 23:35 10/10/17 23:35 10/10/17 23:35 10/10/17 23:35 10/10/17 23:35 Intake and Output: 10/10/17 10/11/17 18:59 06:59 Intake Total 300 Output Total 400 Balance -100 - Medications Medications: Current Medications Chlordiazepoxide (Librium) 50 mg PO Q6 [facility] PRN Reason: Taper Stop: 10/14/17 05:59 Last Admin: 10/11/17 00:22 Dose: 50 mg Folic Acid (Folic Acid) 1 mg PO DAILY [facility] Last Admin: 10/10/17 10:23 Dose: 1 mg Lactulose (Enulose) 20 gm PO Q8H PRN PRN Reason: Constipation Lorazepam (Ativan) 1 mg IVP Q6H PRN PRN Reason: Seizure activity Multivitamins/Vitamin C (Multi-Delyn Liquid) 5 ml PO DAILY [facility] Last Admin: 10/10/17 09:26 Dose: 5 ml Nadolol (Corgard) 20 mg PO DAILY [facility] Last Admin: 10/10/17 09:26 Dose: 20 mg Pantoprazole Sodium (Protonix Inj) 40 mg IVP Q12H [facility] Last Admin: 10/10/17 21:13 Dose: 40 mg Rifaximin (Xifaxan) 550 mg PO BID [facility] PRN Reason: Protocol Last Admin: 10/10/17 17:47 Dose: 550 mg Thiamine HCl (Vitamin B1 Tab) 100 mg PO DAILY [facility] Last Admin: 10/10/17 09:27 Dose: 100 mg - Labs Labs: 10/10/17 07:18 10/10/17 11:48 PT 16.4 SECONDS (9.7-12.2) H 10/10/17 07:18 INR 1.5 10/10/17 07:18 APTT 33 SECONDS (21-34) 10/10/17 07:18 Attending/Attestation - Attestation I have personally seen and examined this patient.: Yes I have fully participated in the care of the patient.: Yes I have reviewed all pertinent clinical information, including history, physical exam and plan: Yes Notes (Text): This is late computer entry for 10/10/17. Patient seen, examined, and case discussed with day-time resident. Patient transferred out from the ICU to the medical floor. Patient seen after lunch time. Patient able to speak his name, say the name of the President, he is aware he is at a hospital, says the wrong date. Patient finished his lunch at bedside. Case discussed with GI. Assessment and plan updated below. Assessment/Plan 1). Anemia Secondary to GI Bleed (Esophageal Varices) Assessment/Plan * Dr. Madsen (GI) on consult-->help appreciated * Upper EGD performed 10/06/17 and showed Grade II Varices present in the lower 1/ 3 of the esophagus and these were banded; will need to f./u GI for repeat EGD for future banding * Has received a total of 5 units of PRBC and HgB/Hct is stable * Protonix 40 mg IV Q12H * NO Longer on Octreotide 25 mcg/hr IV * Nadolol 20 mg PO 1x/day * Rifaximin 550 mg PO 2x/day 2). Alcohol Abuse Assessment/Plan * Stated that he has 10 beers on Xzo-Big-Xies but suspect that this is more * Extensive conversation 10/06/17 with patient (Bangladeshi translation being provided by ICU Resident Dr. Mily Koo) concerning the dangers that this was posing to his GI system and his overall health * Patient will need to be provided with AA meeting information upon discharge * Social work consult for information in regards to AA * On night of 10/06/17 started to become agitated, trying to get out of bed, and was noted to be tremulous likely secondary to alcohol withdrawal * Librium Taper: * 10/10-: Librium 50mg PO Q6H * 10/11-: Librium 25mg PO Q6H * 10/12-: Librium 25mg PO Q12H * 10/13-: Librium 25mg PO daily * Ativan 1 mg IV Q6H PRN seizure activity only * Thiamine 100mg PO daily * Folic acid 1mg PO daily * MVI 5ml PO daily 3). Liver Cirrhosis Assessment/Plan * CT Abdomen/Pelvis (10/05/17): Hepatic cirrhosis. Retroperitoneal varices in the left upper abdomen. No definite esophageal varices. No ascites. Diffuse nonspecific thickening of the gallbladder wall, possibly related to hypoalbuminemia associated with cirrhosis. Patent portal vein. * Alcohol cessation is needed * Hepatitis Panel negative * HIV 1&2 negative 4). Hypokalemia Assessment/Plan * Repleted * monitor K and Mg2+ 5). Metabolic Acidosis Assessment/Plan * Likely secondary to the GI Bleed 6). Low Measured Calcium Assessment/Plan * Low albumin likely contributing to this * Continue to monitor 7). Elevated LFTs Assessment/Plan * CT Abdomen/Pelvis (10/05/17): Hepatic cirrhosis. Retroperitoneal varices in the left upper abdomen. No definite esophageal varices. No ascites. Diffuse nonspecific thickening of the gallbladder wall, possibly related to hypoalbuminemia associated with cirrhosis. Patent portal vein. * Hepatitis panel: negative * HIV 1 and 2: negative * Secondary to the Alcohol abuse/Liver Cirrhosis * Continue to monitor 8). Hepatic Encephalopathy Elevated Ammonia Level Assessment/Plan * normalized; patient is more awake, alert, able to speak his name, president name * CT head (10/05/17): unremarkable noncontrast head CT * Lactulose 20 gm PO Q8H PRN constipation * Rifaximin 550 mg PO 2x/day * Monitor ammonia level 9). Low Albumin Assessment/Plan * Likely secondary to the Liver Cirrhosis and malnutrition 10. Tachycardia Assessment/Plan * Likely secondary to the Anemia secondary to the GI Bleed secondary to the Esophageal Varices * Improved as the anemia has improved * Echocardiogram 10/05/17: normal (official report available in EMR) 11. Unsteady Gait Assessment/Plan * Fall risk precaution * PT/OT eval 12). Prophylaxis Assessment/Plan * NO anticoagulation due to the GI Bleed * Protonix 40 mg IV Q12H * Regular Diet * Banana Bag once a day * Fall risk protocol * Reconsult Physical Therapy Evaluation and Treatment and occupational therapy Disposition: f/u PT/OT eval; social work eval for AA; pending GI clearance; patient is on day 1 of Librium taper
[2017-10-10 13:30] LABS: ALB/GLOB RATIO 0.7 (1.0-2.1); ALBUMIN 2.6 g/dL (3.5-5.0); ALT/SGPT 60 U/L (21-72); AST/SGOT 107 U/L (17-59); BLOOD UREA NITROGEN 9 mg/dL (9-20); CALCIUM 8.1 mg/dl (8.6-10.4); GFR AFRICAN-AMERICAN > 60; GFR NON-AFRICAN AMERICAN > 60
--- NOTE | 2017-10-10 13:43 | CP.PCM.PN ---
Subjective - Date & Time of Evaluation Date of Evaluation: 10/10/17 Time of Evaluation: 13:41 - Subjective Subjective: f/u GI bleed. No bleeding, RB, melena, hematemesis, hemoptysis, hematuria. More alert. Objective - Vital Signs/Intake and Output Vital Signs (last 24 hours): Temp Pulse Resp BP Pulse Ox 98.3 F 81 20 119/66 98 10/10/17 08:00 10/10/17 08:00 10/10/17 08:00 10/10/17 08:00 10/10/17 08:00 Intake and Output: 10/10/17 10/10/17 06:59 18:59 Intake Total 615 Output Total 500 Balance 115 - Medications Medications: Current Medications Chlordiazepoxide (Librium) 50 mg PO Q6 [facility] PRN Reason: Taper Stop: 10/14/17 05:59 Last Admin: 10/10/17 12:10 Dose: 50 mg Folic Acid (Folic Acid) 1 mg PO DAILY [facility] Last Admin: 10/10/17 10:23 Dose: 1 mg Lactulose (Enulose) 20 gm PO Q8H PRN PRN Reason: Constipation Last Admin: 10/07/17 11:20 Dose: 20 gm Lorazepam (Ativan) 1 mg IVP Q6H PRN PRN Reason: Agitation Last Admin: 10/10/17 02:49 Dose: 1 mg Multivitamins/Vitamin C (Multi-Delyn Liquid) 5 ml PO DAILY [facility] Last Admin: 10/10/17 09:26 Dose: 5 ml Nadolol (Corgard) 20 mg PO DAILY [facility] Last Admin: 10/10/17 09:26 Dose: 20 mg Pantoprazole Sodium (Protonix Inj) 40 mg IVP Q12H [facility] Last Admin: 10/10/17 08:31 Dose: 40 mg Rifaximin (Xifaxan) 550 mg PO BID [facility] PRN Reason: Protocol Last Admin: 10/10/17 09:26 Dose: 550 mg Thiamine HCl (Vitamin B1 Tab) 100 mg PO DAILY [facility] Last Admin: 10/10/17 09:27 Dose: 100 mg - Labs Labs: 10/10/17 07:18 10/10/17 11:48 PT 16.4 SECONDS (9.7-12.2) H 10/10/17 07:18 INR 1.5 10/10/17 07:18 APTT 33 SECONDS (21-34) 10/10/17 07:18 - Constitutional Appears: Non-toxic - Respiratory Exam Respiratory Exam: Clear to Ausculation Bilateral - Cardiovascular Exam Cardiovascular Exam: RRR - GI/Abdominal Exam GI & Abdominal Exam: Soft, Normal Bowel Sounds. absent: Tenderness - Neurological Exam Neurological Exam: Alert, Awake Assessment and Plan (1) GI bleed Assessment & Plan: Varices- s/p banding. no further bleeding REc: PPI, B Jeannette, repeatm EGD in future, stop alcohol. Status: Acute (2) Cirrhosis Status: Acute (3) Alcohol abuse Status: Acute (4) Anemia Status: Acute (5) Electrolyte abnormality Status: Acute (6) Confusion Assessment & Plan: NH3 better on meds Status: Acute
[2017-10-11 07:13] LABS: INR 1.4; PROTHROMBIN TIME 15.8 SECONDS (9.7-12.2)
[2017-10-11 07:14] LABS: BASO % 1.1 % (0.0-2.0); EOS # 0.1 K/uL (0.0-0.7); EOS % 2.7 % (0.0-4.0); LYMPH # 1.1 K/uL (1.0-4.3); LYMPH % 26.5 % (20.0-40.0); MEAN CELL VOLUME 78.2 fL (80.0-94.0); MEAN CORPUSCULAR HGB CONC 31.9 g/dL (33.0-37.0); MEAN PLATELET VOLUME 9.3 fL (7.2-11.7); MONO # 0.6 K/uL (0.0-0.8); MONO % 15.6 % (0.0-10.0); NEUT # 2.2 K/uL (1.8-7.0); NEUT % 54.1 % (50.0-75.0); NRBC % 0.1 % (0.0-2.0); RBC 3.22 Mil/uL (4.40-5.90); RED CELL DISTRIBUTION WIDTH 22.9 % (11.5-14.5)
[2017-10-11 07:47] LABS: ALB/GLOB RATIO 0.7 (1.0-2.1); ALBUMIN 2.6 g/dL (3.5-5.0)
[2017-10-11 07:51] LABS: ALT/SGPT 60 U/L (21-72); AST/SGOT 96 U/L (17-59); BLOOD UREA NITROGEN 9 mg/dL (9-20); CALCIUM 8.1 mg/dl (8.6-10.4); GFR AFRICAN-AMERICAN > 60; GFR NON-AFRICAN AMERICAN > 60
[2017-10-11] MEDS: Multiple Vitamins Oral Solution PO SCH (10:02)
[2017-10-11] MEDS ORDERED: Potassium Chloride 20 mEq ER Tab PO ONE (10:22)
[2017-10-11] MEDS: Magnesium Sulfate 1 gm in D5W 1 GM/100 ML BAG IVPB ONE ×2 (10:30→12:17)
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
[2017-10-11 16:06] VITALS: BP 131/76; PULSE 78; TEMP 98.1; O2SAT 100
== END 2017-10-11 21:15 | disposition home or self-care (01) | DRG 468 ==
LOC: C.ER 10:36 → C.9E 11:41 → C.9I 12:02 → C.3T 10-09 21:25
PROVIDERS: ADMIT Hospitalist; ATTEND Hospitalist
PROC: 30233N1 Transfusion of Nonautologous Red Blood Cells into Peripheral Vein, Percutaneous Approach (ICD-10-PCS; 2017-10-05)
PROC: 06L38CZ Occlusion of Esophageal Vein with Extraluminal Device, Via Natural or Artificial Opening Endoscopic (ICD-10-PCS; principal; 2017-10-06 07:30)
DX: K70.30 Alcoholic cirrhosis of liver without ascites (principal); D62 Acute posthemorrhagic anemia; I85.10 Secondary esophageal varices without bleeding; E87.2 Acidosis; K92.2 Gastrointestinal hemorrhage, unspecified; K29.80 Duodenitis without bleeding; F10.239 Alcohol dependence with withdrawal, unspecified; D69.6 Thrombocytopenia, unspecified; E46 Unspecified protein-calorie malnutrition; E87.6 Hypokalemia; K70.10 Alcoholic hepatitis without ascites; I10 Essential (primary) hypertension; I86.8 Varicose veins of other specified sites; E83.42 Hypomagnesemia; E83.51 Hypocalcemia